=== PATIENT | male | born 1980 | race Two or more races ===

== ENCOUNTER 2019-08-31 22:04 | Inpatient (IN) | payer OTHER ==
[~2019-08-31] VITALS: Ht 172.7 cm; Wt 77.3 kg
[2019-08-31] MEDS ORDERED: LISI-662 PO (23:24)
[2019-08-31] MEDS ORDERED: ATEN-73 PO (23:24)
[2019-08-31 23:54] LABS: EOSINOPHILS % (AUTO) 8.3 % (1.0-6.0); HEMATOCRIT 45.2 % (41-53); HEMOGLOBIN 14.9 g/dL (13.5-17.5); LYMPHOCYTES # (AUTO) 2.8 K/uL (1.0-4.8); LYMPHOCYTES % (AUTO) 39.1 % (22.0-44.0); MEAN CORPUSCULAR HEMOGLOBIN 30.4 pg (26.0-34.0); MEAN CORPUSCULAR VOLUME 92 fL (80-100); MONOCYTES # (AUTO) 0.6 K/uL (0.1-1.0); MONOCYTES % (AUTO) 8.3 % (2.0-9.0); NEUTROPHILS # (AUTO) 3.1 K/uL (1.8-7.7); NEUTROPHILS % (AUTO) 43.3 % (40.0-70.0); PLATELET COUNT (AUTO) 235 K/uL (150-450); RED BLOOD CELL COUNT(AUTO) 4.92 MIL/uL (4.50-5.90); RED CELL DISTRIBUTION WIDTH 13.7 % (11.5-14.5)
[2019-09-01 00:02] LABS: ANION GAP 3 mmol/L (8-16); CALCIUM, TOTAL 9.3 mg/dL (8.8-10.5); CARBON DIOXIDE 32 mmol/L (22-29); CHLORIDE 105 mmol/L (98-107); CREATININE 0.82 mg/dL (0.60-1.30); GLOMERULAR FILTR. RATE CALC > 60 mL/min (>60); GLUCOSE,RANDOM 91 mg/dL (70-110); POTASSIUM 3.8 mmol/L (3.5-5.1); SODIUM SERUM 140 mmol/L (136-145); UREA NITROGEN, BLOOD 14 mg/dL (7-18)
[2019-09-01 00:08] LABS: ALANINE AMINOTRANSFERASE 25 U/L (12-78); ALBUMIN 3.6 g/dL (3.4-5.0); ALKALINE PHOSPHATASE 119 U/L (46-116); ASPARTATE AMINOTRANSFERASE 26 U/L (15-37); BILIRUBIN,TOTAL 0.6 mg/dL (0.1-1.0); TOTAL PROTEIN, SERUM 7.2 g/dL (6.4-8.2)
[2019-09-01] MEDS ORDERED: ACETAMINOPHEN 325 MG TABLET PO PRN ×2 (00:45→02:30)
[2019-09-01] MEDS ORDERED: ONDANSETRON HCL 4 MG/2 ML VIAL IVP PRN ×2 (00:45→02:30)
[2019-09-01] MEDS ORDERED: 0.9% SODIUM CHLORIDE 10 ML SYRINGE IVP PRN (00:45)
[2019-09-01 01:40] VITALS: BP 112/51
[2019-09-01 02:30] VITALS: BP 112/51
[2019-09-01] MEDS ORDERED: HydrOXYzine PAMOATE 50 MG CAPSULE PO PRN (02:30)
[2019-09-01] MEDS ORDERED: ZOLPIDEM TARTRATE 5 MG TABLET PO PRN (02:30)
[2019-09-01] MEDS ORDERED: CloNIDine HCL 0.1 MG TABLET PO PRN (02:30)
[2019-09-01] MEDS ORDERED: IBUPROFEN 600 MG TABLET PO PRN (02:30)
[2019-09-01] MEDS ORDERED: MORPHINE SULFATE 2 MG/ML SYRINGE IVP PRN (02:30)
[2019-09-01] MEDS ORDERED: HYDROCODONE/ACETAMINOPHEN 5-325 MG TABLET PO PRN (02:30)
[2019-09-01] MEDS ORDERED: MAGNESIUM HYDROXIDE SUSPENSION 30 ML UDCUP PO PRN (02:30)
[2019-09-01] MEDS ORDERED: ALBUTEROL SULFATE 2.5 MG/0.5 ML NEB SOLUTION NEB PRN (02:30)
[2019-09-01] MEDS ORDERED: BISACODYL 10 MG RECTAL RECTAL SUPPOSITORY PR PRN (02:30)
[2019-09-01] MEDS ORDERED: IPRATROPIUM BROMIDE 0.5 MG/2.5 ML NEB SOLUTION NEB PRN (02:30)
[2019-09-01] MEDS ORDERED: MAG HYDROX/AL HYDROX/SIMETH ES 30 ML SUSPENSION UDCUP PO PRN (02:30)
[2019-09-01] MEDS ORDERED: PNEUMOCOCCAL VACCINE POLYVALENT 0.5 ML VIAL [PPSV23] IM ONE (03:15)
[2019-09-01 04:40] VITALS: BP 94/56
[2019-09-01] MEDS: CloNIDine HCL 0.1 MG TABLET PO SCH ×4 (05:57→21:45)
[2019-09-01] MEDS ORDERED: HEPARIN SODIUM,PORCINE 5,000 UNITS/ML VIAL SQ SCH (08:00)
[2019-09-01 08:44] VITALS: BP 126/76
[2019-09-01] MEDS ORDERED: DOCUSATE SODIUM 100 MG CAPSULE PO SCH (09:00)
[2019-09-01 20:16] VITALS: BP 108/57
[2019-09-02 00:22] VITALS: BP 99/55
[2019-09-02 03:52] VITALS: BP 101/64
[2019-09-02 04:47] VITALS: BP 104/69
[2019-09-02] MEDS: CloNIDine HCL 0.1 MG TABLET PO SCH ×4 (06:00→22:00)
[2019-09-02 08:08] VITALS: BP 116/70
[2019-09-02] MEDS ORDERED: CLON0.1T83 PO (16:24)
[2019-09-02 19:53] VITALS: BP 116/57
[2019-09-03 05:08] VITALS: BP 112/66
[2019-09-03] MEDS: CloNIDine HCL 0.1 MG TABLET PO SCH (06:00)
== END 2019-09-03 12:06 | DRG 897 ==
LOC: EMS 22:04 → 6S 09-01 01:00
PROVIDERS: ADMIT Hospitalist; ATTEND Hospitalist
DX: F11.23 Opioid dependence with withdrawal (principal); I10 Essential (primary) hypertension
CPT/HCPCS: G0480; J1644

== ENCOUNTER 2019-09-04 03:35 | Inpatient (IN) | payer OTHER ==
[~2019-09-04] VITALS: Ht 172.7 cm; Wt 68.2 kg
[~2019-09-04 03:35] MED LIST: CLON0.1T83 PO
[2019-09-04 04:38] LABS: BASOPHILS % (AUTO) 1.3 % (0.0-2.0); EOSINOPHILS % (AUTO) 8.5 % (1.0-6.0); HEMATOCRIT 44.6 % (41-53); HEMOGLOBIN 14.5 g/dL (13.5-17.5); LYMPHOCYTES # (AUTO) 3.3 K/uL (1.0-4.8); LYMPHOCYTES % (AUTO) 41.8 % (22.0-44.0); MEAN CORPUSCULAR HGB CONC 32.4 G/dL (31.0-37.0); MEAN CORPUSCULAR VOLUME 92 fL (80-100); MONOCYTES # (AUTO) 0.6 K/uL (0.1-1.0); MONOCYTES % (AUTO) 7.8 % (2.0-9.0); NEUTROPHILS # (AUTO) 3.2 K/uL (1.8-7.7); NEUTROPHILS % (AUTO) 40.6 % (40.0-70.0); PLATELET COUNT (AUTO) 243 K/uL (150-450); RED BLOOD CELL COUNT(AUTO) 4.83 MIL/uL (4.50-5.90); RED CELL DISTRIBUTION WIDTH 13.6 % (11.5-14.5)
[2019-09-04 04:44] LABS: ANION GAP 4 mmol/L (8-16); CALCIUM, TOTAL 8.7 mg/dL (8.8-10.5); CARBON DIOXIDE 33 mmol/L (22-29); CHLORIDE 105 mmol/L (98-107); CREATININE 0.96 mg/dL (0.60-1.30); GLOMERULAR FILTR. RATE CALC > 60 mL/min (>60); GLUCOSE,RANDOM 80 mg/dL (70-110); POTASSIUM 4.1 mmol/L (3.5-5.1); SODIUM SERUM 142 mmol/L (136-145); UREA NITROGEN, BLOOD 16 mg/dL (7-18)
[2019-09-04 04:49] LABS: ALANINE AMINOTRANSFERASE 10 U/L (12-78); ALBUMIN 3.6 g/dL (3.4-5.0); ALKALINE PHOSPHATASE 134 U/L (46-116); ASPARTATE AMINOTRANSFERASE 13 U/L (15-37); BILIRUBIN,TOTAL 0.2 mg/dL (0.1-1.0)
[2019-09-04 08:57] VITALS: BP 112/64
[2019-09-04] MEDS ORDERED: ACETAMINOPHEN 325 MG TABLET PO PRN (12:45)
[2019-09-04] MEDS ORDERED: MAGNESIUM HYDROXIDE SUSPENSION 30 ML UDCUP PO PRN (12:45)
[2019-09-04 15:40] VITALS: BP 114/58
[2019-09-04] MEDS: HEPARIN SODIUM,PORCINE 5,000 UNITS/ML VIAL SQ SCH ×2 (15:52→23:43)
[2019-09-04 22:20] VITALS: BP 91/50
[2019-09-05 04:35] VITALS: BP 99/58
[2019-09-05] MEDS: HEPARIN SODIUM,PORCINE 5,000 UNITS/ML VIAL SQ SCH (08:00)
[2019-09-05 08:35] VITALS: BP 108/60
[2019-09-05] MEDS: FAMOTIDINE 20 MG TABLET PO SCH (08:48)
[2019-09-05] MEDS: SERTRALINE HCL 50 MG TABLET PO SCH (09:42)
[2019-09-05 16:03] VITALS: BP 118/63
[2019-09-05 19:50] VITALS: BP 120/73
[2019-09-06 04:59] VITALS: BP 111/67
[2019-09-06] MEDS: FAMOTIDINE 20 MG TABLET PO SCH (08:18)
[2019-09-06] MEDS: SERTRALINE HCL 50 MG TABLET PO SCH ×2 (08:18→08:20)
[2019-09-06 08:19] VITALS: BP 135/80
[2019-09-06] MEDS ORDERED: SERT50TA12 PO (14:07)
== END 2019-09-06 15:20 | DRG 885 ==
LOC: EMS 03:35 → 6S 06:21
PROVIDERS: ADMIT Hospitalist; ATTEND Hospitalist
DX: F33.2 Major depressive disorder, recurrent severe without psychotic features (principal); R45.851 Suicidal ideations; F19.10 Other psychoactive substance abuse, uncomplicated; I10 Essential (primary) hypertension; Z90.49 Acquired absence of other specified parts of digestive tract; F11.90 Opioid use, unspecified, uncomplicated; F17.210 Nicotine dependence, cigarettes, uncomplicated; F41.9 Anxiety disorder, unspecified; F10.10 Alcohol abuse, uncomplicated; Y90.9 Presence of alcohol in blood, level not specified; Z79.899 Other long term (current) drug therapy
CPT/HCPCS: G0480; J1644; 36415-L1; 36415-TC; 71045-TC

== ENCOUNTER 2019-09-11 11:10 | Inpatient (IN) | payer OTHER ==
[~2019-09-11] VITALS: Ht 172.7 cm; Wt 68.2 kg
[~2019-09-11 11:10] MED LIST changes: -CLON0.1T83 PO; +SERT50TA12 PO
[2019-09-11] MEDS ORDERED: LISI-662 PO (11:38)
[2019-09-11] MEDS ORDERED: SERT50TA12 PO (11:38)
[2019-09-11] MEDS ORDERED: MAGNESIUM HYDROXIDE SUSPENSION 30 ML UDCUP PO PRN (11:45)
[2019-09-11 11:48] LABS: BASOPHILS % (AUTO) 1.1 % (0.0-2.0); EOSINOPHILS % (AUTO) 7.4 % (1.0-6.0); HEMATOCRIT 41.6 % (41-53); LYMPHOCYTES % (AUTO) 35.6 % (22.0-44.0); MEAN CORPUSCULAR HEMOGLOBIN 30.9 pg (26.0-34.0); MEAN CORPUSCULAR HGB CONC 33.7 G/dL (31.0-37.0); MEAN CORPUSCULAR VOLUME 92 fL (80-100); MONOCYTES # (AUTO) 0.4 K/uL (0.1-1.0); MONOCYTES % (AUTO) 7.4 % (2.0-9.0); NEUTROPHILS # (AUTO) 2.7 K/uL (1.8-7.7); NEUTROPHILS % (AUTO) 48.5 % (40.0-70.0); PLATELET COUNT (AUTO) 251 K/uL (150-450); RED BLOOD CELL COUNT(AUTO) 4.54 MIL/uL (4.50-5.90); RED CELL DISTRIBUTION WIDTH 13.8 % (11.5-14.5)
[2019-09-11 12:12] LABS: ALANINE AMINOTRANSFERASE 30 U/L (12-78); ALBUMIN 3.4 g/dL (3.4-5.0); ALKALINE PHOSPHATASE 114 U/L (46-116); ASPARTATE AMINOTRANSFERASE 17 U/L (15-37); BILIRUBIN,TOTAL 0.3 mg/dL (0.1-1.0); CALCIUM, TOTAL 8.7 mg/dL (8.8-10.5); CARBON DIOXIDE 34 mmol/L (22-29); CREATININE 0.93 mg/dL (0.60-1.30); GLOMERULAR FILTR. RATE CALC > 60 mL/min (>60); GLUCOSE,RANDOM 110 mg/dL (70-110); UREA NITROGEN, BLOOD 11 mg/dL (7-18)
[2019-09-11 12:20] VITALS: BP 114/61
[2019-09-11 12:30] LABS: ANION GAP 4 mmol/L (8-16); CHLORIDE 103 mmol/L (98-107); POTASSIUM 4.5 mmol/L (3.5-5.1); SODIUM SERUM 141 mmol/L (136-145)
[2019-09-11] MEDS: ACETAMINOPHEN 325 MG TABLET PO PRN (13:18)
[2019-09-11 15:31] VITALS: BP 123/69
[2019-09-11 15:51] LABS: AMPHET/METH SCREEN,URINE NEGATIVE (NEGATIVE); BARBITURATE SCREEN, URINE NEGATIVE (NEGATIVE); BENZODIAZEPINES SCREEN,URINE NEGATIVE (NEGATIVE); CANNABINOID SCREEN,URINE NEGATIVE (NEGATIVE); COCAINE SCREEN,URINE NEGATIVE (NEGATIVE); METHADONE SCREEN, URINE NEGATIVE (NEGATIVE); OPIATE SCREEN,URINE NEGATIVE (NEGATIVE)
[2019-09-11 16:17] LABS: PHENCYCLIDINE SCREEN,URINE NEGATIVE (NEGATIVE)
[2019-09-11 19:45] VITALS: BP 101/70
[2019-09-12 03:58] VITALS: BP 102/86
[2019-09-12 08:37] VITALS: BP 99/44
[2019-09-12 15:30] VITALS: BP 120/65
[2019-09-12 20:50] VITALS: BP 116/66
[2019-09-13 05:36] VITALS: BP 108/66
[2019-09-13] MEDS: ACETAMINOPHEN 325 MG TABLET PO PRN ×2 (05:47→22:21)
[2019-09-13 08:59] VITALS: BP_SYST 103; BP_SYST 203; BP_DIAS 56
[2019-09-13 15:40] VITALS: BP 130/60
[2019-09-13 20:24] VITALS: BP 107/68
[2019-09-14 07:40] VITALS: BP 121/75
[2019-09-14] MEDS: CITALOPRAM HYDROBROMIDE 20 MG TABLET PO SCH (18:04)
[2019-09-14] MEDS: ACETAMINOPHEN 325 MG TABLET PO PRN (20:00)
[2019-09-14 20:54] VITALS: BP 113/62
[2019-09-15 05:13] VITALS: BP 102/63
[2019-09-15 08:03] VITALS: BP 107/74
[2019-09-15] MEDS: CITALOPRAM HYDROBROMIDE 20 MG TABLET PO SCH (08:37)
[2019-09-15 15:23] VITALS: BP 105/61
[2019-09-15 19:46] VITALS: BP 113/67
[2019-09-15] MEDS: ACETAMINOPHEN 325 MG TABLET PO PRN (19:47)
[2019-09-16] MEDS ORDERED: CITA-144 PO (07:29)
[2019-09-16 08:10] VITALS: BP 111/69
[2019-09-16] MEDS: CITALOPRAM HYDROBROMIDE 20 MG TABLET PO SCH (08:35)
[2019-09-16 15:56] VITALS: BP 115/72
[2019-09-16 19:46] VITALS: BP 116/68
[2019-09-17 05:02] VITALS: BP 112/70
[2019-09-17] MEDS: CITALOPRAM HYDROBROMIDE 20 MG TABLET PO SCH (07:56)
[2019-09-17 08:11] VITALS: BP 121/77
== END 2019-09-17 10:30 | DRG 881 ==
LOC: EMS 11:11 → 6S 11:43
PROVIDERS: ADMIT Internal Medicine; ATTEND Internal Medicine
DX: F32.9 Major depressive disorder, single episode, unspecified (principal); R45.851 Suicidal ideations; I10 Essential (primary) hypertension; K59.00 Constipation, unspecified; F11.90 Opioid use, unspecified, uncomplicated; F43.20 Adjustment disorder, unspecified; F60.2 Antisocial personality disorder; Z90.49 Acquired absence of other specified parts of digestive tract
CPT/HCPCS: G0480

== ENCOUNTER 2019-12-17 12:59 | Inpatient (IN) | payer OTHER ==
[~2019-12-17] VITALS: Ht 167.6 cm; Wt 63.4 kg
[~2019-12-17 12:59] MED LIST changes: +BUSP5TAB20 PO; +PROZ10 PO; -SERT50TA12 PO
[2019-12-17] MEDS ORDERED: LISI-662 PO (13:42)
[2019-12-17 14:16] LABS: AMPHET/METH SCREEN,URINE NEGATIVE (NEGATIVE); BARBITURATE SCREEN, URINE NEGATIVE (NEGATIVE); BENZODIAZEPINES SCREEN,URINE NEGATIVE (NEGATIVE); CANNABINOID SCREEN,URINE NEGATIVE (NEGATIVE); COCAINE SCREEN,URINE NEGATIVE (NEGATIVE); METHADONE SCREEN, URINE NEGATIVE (NEGATIVE); OPIATE SCREEN,URINE NEGATIVE (NEGATIVE)
[2019-12-17 14:20] LABS: PHENCYCLIDINE SCREEN,URINE NEGATIVE (NEGATIVE)
[2019-12-17 14:46] LABS: EOSINOPHILS % (AUTO) 2.1 % (1.0-6.0); HEMATOCRIT 42.9 % (41-53); HEMOGLOBIN 14.8 g/dL (13.5-17.5); LYMPHOCYTES % (AUTO) 34.9 % (22.0-44.0); MEAN CORPUSCULAR HEMOGLOBIN 30.6 pg (26.0-34.0); MEAN CORPUSCULAR HGB CONC 34.6 G/dL (31.0-37.0); MEAN CORPUSCULAR VOLUME 89 fL (80-100); MONOCYTES # (AUTO) 0.4 K/uL (0.1-1.0); MONOCYTES % (AUTO) 6.9 % (2.0-9.0); NEUTROPHILS # (AUTO) 3.2 K/uL (1.8-7.7); NEUTROPHILS % (AUTO) 55.1 % (40.0-70.0); PLATELET COUNT (AUTO) 242 K/uL (150-450); RED BLOOD CELL COUNT(AUTO) 4.85 MIL/uL (4.50-5.90); RED CELL DISTRIBUTION WIDTH 14.2 % (11.5-14.5)
[2019-12-17 14:54] LABS: ANION GAP 12 mmol/L (8-16); CALCIUM, TOTAL 9.2 mg/dL (8.8-10.5); CARBON DIOXIDE 25 mmol/L (22-29); CHLORIDE 101 mmol/L (98-107); CREATININE 0.91 mg/dL (0.60-1.30); GLOMERULAR FILTR. RATE CALC > 60 mL/min (>60); GLUCOSE,RANDOM 70 mg/dL (70-110); POTASSIUM 4.3 mmol/L (3.5-5.1); SODIUM SERUM 138 mmol/L (136-145); UREA NITROGEN, BLOOD 20 mg/dL (7-18)
[2019-12-17 15:01] LABS: ALANINE AMINOTRANSFERASE 37 U/L (12-78); ALBUMIN 3.7 g/dL (3.4-5.0); ALKALINE PHOSPHATASE 93 U/L (46-116); ASPARTATE AMINOTRANSFERASE 20 U/L (15-37); BILIRUBIN,TOTAL 0.7 mg/dL (0.1-1.0); TOTAL PROTEIN, SERUM 6.8 g/dL (6.4-8.2)
[2019-12-17] MEDS ORDERED: ONDANSETRON HCL 4 MG TABLET PO PRN (15:45)
[2019-12-17] MEDS ORDERED: CloNIDine HCL 0.1 MG TABLET PO PRN (15:45)
[2019-12-17] MEDS ORDERED: ALBUTEROL SULFATE HFA 90 MCG/PUFF 8 GM INHALER IH PRN (15:45)
[2019-12-17] MEDS ORDERED: PETROLATUM,WHITE 28 GM JELLY TP PRN (15:45)
[2019-12-17] MEDS ORDERED: MAGNESIUM HYDROXIDE SUSPENSION 30 ML UDCUP PO PRN (15:45)
[2019-12-17] MEDS ORDERED: DOCUSATE SODIUM 100 MG CAPSULE PO PRN (15:45)
[2019-12-17] MEDS ORDERED: GuaiFENesin/D-METHORPHAN [SUGAR-FREE] 200-20MG/10 ML SYRUP UDCUP PO PRN (15:45)
[2019-12-17] MEDS ORDERED: NICOTINE 14 MG/24 HOUR PATCH TD PRN (15:45)
[2019-12-17] MEDS ORDERED: MAG HYDROX/AL HYDROX/SIMETH ES 30 ML SUSPENSION UDCUP PO PRN (15:45)
[2019-12-17] MEDS ORDERED: LOPERAMIDE HCL 2 MG CAPSULE PO PRN (15:45)
[2019-12-17 16:03] LABS: COVID AG,FIA SOURCE NASOPHARYNGEAL
[2019-12-17 17:25] VITALS: BP 126/84
[2019-12-17 20:20] VITALS: BP 113/68
[2019-12-17] MEDS: ACETAMINOPHEN 325 MG TABLET PO PRN (20:41)
[2019-12-18 04:02] VITALS: BP 107/61
[2019-12-18 08:02] VITALS: BP 110/70
[2019-12-18] MEDS: IBUPROFEN 400 MG TABLET PO PRN ×2 (08:06→19:45)
[2019-12-18] MEDS: ACETAMINOPHEN 325 MG TABLET PO PRN ×2 (08:13→15:18)
[2019-12-18 15:57] VITALS: BP 122/72
[2019-12-18 19:40] VITALS: BP 118/72
[2019-12-19 05:00] VITALS: BP 106/62
[2019-12-19 08:13] VITALS: BP 110/73
[2019-12-19] MEDS: ACETAMINOPHEN 325 MG TABLET PO PRN ×2 (08:18→20:11)
[2019-12-19] MEDS: RisperiDONE 1 MG TABLET PO SCH (13:47)
[2019-12-19] MEDS: SERTRALINE HCL 50 MG TABLET PO SCH (13:47)
[2019-12-19 16:54] VITALS: BP 129/71
[2019-12-19 19:00] VITALS: BP 128/80
[2019-12-20 08:43] VITALS: BP 108/73
[2019-12-20] MEDS: RisperiDONE 1 MG TABLET PO SCH (09:12)
[2019-12-20] MEDS: SERTRALINE HCL 50 MG TABLET PO SCH (09:12)
[2019-12-20] MEDS: ACETAMINOPHEN 325 MG TABLET PO PRN (14:37)
[2019-12-20 16:03] VITALS: BP 119/70
[2019-12-20 19:40] VITALS: BP 104/58
[2019-12-21] MEDS: ACETAMINOPHEN 325 MG TABLET PO PRN (06:44)
[2019-12-21] MEDS: IBUPROFEN 400 MG TABLET PO PRN ×2 (06:45→20:18)
[2019-12-21 07:48] VITALS: BP 110/68
[2019-12-21] MEDS: RisperiDONE 1 MG TABLET PO SCH (08:15)
[2019-12-21] MEDS: SERTRALINE HCL 50 MG TABLET PO SCH ×3 (08:15→20:16)
[2019-12-21 19:40] VITALS: BP 113/72
[2019-12-22 05:20] VITALS: BP 107/57
[2019-12-22 07:55] VITALS: BP 129/76
[2019-12-22] MEDS: SERTRALINE HCL 50 MG TABLET PO SCH ×2 (07:55→20:22)
[2019-12-22] MEDS: RisperiDONE 1 MG TABLET PO SCH ×2 (07:55→20:22)
[2019-12-22] MEDS: IBUPROFEN 400 MG TABLET PO PRN (11:35)
[2019-12-22 15:33] VITALS: BP 127/88
[2019-12-22 20:22] VITALS: BP 116/69
[2019-12-22] MEDS: BusPIRone HCL 10 MG TABLET PO SCH (20:22)
[2019-12-23] MEDS: ACETAMINOPHEN 325 MG TABLET PO PRN ×2 (01:40→20:17)
[2019-12-23 08:00] VITALS: BP 130/75
[2019-12-23] MEDS: SERTRALINE HCL 50 MG TABLET PO SCH ×2 (09:07→20:13)
[2019-12-23] MEDS: RisperiDONE 1 MG TABLET PO SCH ×2 (09:07→09:11)
[2019-12-23] MEDS: BusPIRone HCL 10 MG TABLET PO SCH ×2 (09:07→20:14)
[2019-12-23] MEDS: RisperiDONE 0.5 MG TABLET PO SCH ×2 (09:37→20:14)
[2019-12-23 19:00] VITALS: BP 133/85
[2019-12-23] MEDS ORDERED: RisperiDONE 0.5 MG TABLET PO SCH (21:00)
[2019-12-24 08:00] VITALS: BP 133/79
[2019-12-24] MEDS: RisperiDONE 0.5 MG TABLET PO SCH ×2 (08:50→19:49)
[2019-12-24] MEDS: BusPIRone HCL 10 MG TABLET PO SCH ×2 (08:50→19:49)
[2019-12-24] MEDS: SERTRALINE HCL 50 MG TABLET PO SCH ×2 (08:50→19:49)
[2019-12-24] MEDS: ACETAMINOPHEN 325 MG TABLET PO PRN (16:31)
[2019-12-24 19:00] VITALS: BP 113/69
[2019-12-24] MEDS: IBUPROFEN 400 MG TABLET PO PRN (19:49)
[2019-12-25 07:19] VITALS: BP 117/71
[2019-12-25] MEDS: ACETAMINOPHEN 325 MG TABLET PO PRN (07:46)
[2019-12-25] MEDS: BusPIRone HCL 10 MG TABLET PO SCH ×2 (07:46→19:39)
[2019-12-25] MEDS: RisperiDONE 0.5 MG TABLET PO SCH (07:46)
[2019-12-25] MEDS: SERTRALINE HCL 50 MG TABLET PO SCH ×2 (07:46→19:39)
[2019-12-25] MEDS: OLANZapine 5 MG TABLET PO SCH ×2 (10:09→19:39)
[2019-12-25 19:21] VITALS: BP 134/80
[2019-12-26 07:33] VITALS: BP 117/66
[2019-12-26] MEDS: SERTRALINE HCL 50 MG TABLET PO SCH ×2 (07:45→20:04)
[2019-12-26] MEDS: OLANZapine 5 MG TABLET PO SCH (07:45)
[2019-12-26] MEDS: BusPIRone HCL 10 MG TABLET PO SCH ×2 (07:45→20:04)
[2019-12-26] MEDS: ACETAMINOPHEN 325 MG TABLET PO PRN (14:44)
[2019-12-26 19:30] VITALS: BP 132/77
[2019-12-26] MEDS: OLANZapine 7.5 MG TABLET PO SCH (20:04)
[2019-12-27 05:25] VITALS: BP 108/65
[2019-12-27 07:50] VITALS: BP 111/67
[2019-12-27] MEDS: OLANZapine 7.5 MG TABLET PO SCH ×2 (08:31→20:13)
[2019-12-27] MEDS: SERTRALINE HCL 50 MG TABLET PO SCH ×2 (08:31→20:13)
[2019-12-27] MEDS: BusPIRone HCL 10 MG TABLET PO SCH ×2 (08:31→20:13)
[2019-12-27] MEDS: ACETAMINOPHEN 325 MG TABLET PO PRN ×2 (08:37→16:31)
[2019-12-27 19:23] VITALS: BP 128/62
[2019-12-28] MEDS: SERTRALINE HCL 50 MG TABLET PO SCH ×2 (07:54→20:28)
[2019-12-28] MEDS: BusPIRone HCL 10 MG TABLET PO SCH ×2 (07:54→20:28)
[2019-12-28] MEDS: OLANZapine 7.5 MG TABLET PO SCH ×2 (07:54→20:28)
[2019-12-28 08:00] VITALS: BP 142/88
[2019-12-28] MEDS ORDERED: INFLUENZA VIRUS VACCINE QVS 2020-21 (6MO+)/PF 60 MCG/0.5 ML SYRINGE IM ONE (15:15)
[2019-12-28] MEDS: ACETAMINOPHEN 325 MG TABLET PO PRN (16:28)
[2019-12-28 20:45] VITALS: BP 116/74
[2019-12-29 04:20] VITALS: BP 115/72
[2019-12-29] MEDS: BusPIRone HCL 10 MG TABLET PO SCH ×2 (07:48→20:28)
[2019-12-29] MEDS: OLANZapine 7.5 MG TABLET PO SCH ×2 (07:49→20:28)
[2019-12-29] MEDS: SERTRALINE HCL 50 MG TABLET PO SCH ×2 (07:49→20:29)
[2019-12-29] MEDS: ACETAMINOPHEN 325 MG TABLET PO PRN ×2 (13:25→13:26)
[2019-12-29 16:07] VITALS: BP 118/72
[2019-12-29 20:25] VITALS: BP 115/64
[2019-12-30 06:30] VITALS: BP 105/55
[2019-12-30 08:02] VITALS: BP 102/56
[2019-12-30] MEDS: SERTRALINE HCL 50 MG TABLET PO SCH ×2 (08:22→20:13)
[2019-12-30] MEDS: BusPIRone HCL 10 MG TABLET PO SCH ×2 (08:23→20:13)
[2019-12-30] MEDS: OLANZapine 7.5 MG TABLET PO SCH ×2 (08:23→20:13)
[2019-12-30] MEDS: IBUPROFEN 400 MG TABLET PO PRN ×2 (12:59→18:01)
[2019-12-30 15:24] VITALS: BP 128/65
[2019-12-30 19:44] VITALS: BP 122/60
[2019-12-31 08:12] VITALS: BP 109/62
[2019-12-31] MEDS: SERTRALINE HCL 50 MG TABLET PO SCH ×2 (08:14→20:07)
[2019-12-31] MEDS: OLANZapine 7.5 MG TABLET PO SCH ×2 (08:14→20:07)
[2019-12-31] MEDS: BusPIRone HCL 10 MG TABLET PO SCH ×2 (08:14→20:07)
[2019-12-31] MEDS: IBUPROFEN 400 MG TABLET PO PRN (16:32)
[2019-12-31 20:02] VITALS: BP 120/66
[2020-01-01 05:30] VITALS: BP 107/59
[2020-01-01 08:11] VITALS: BP 110/36
[2020-01-01] MEDS: SERTRALINE HCL 50 MG TABLET PO SCH ×2 (08:16→20:34)
[2020-01-01] MEDS: BusPIRone HCL 10 MG TABLET PO SCH ×2 (08:17→20:33)
[2020-01-01] MEDS: OLANZapine 7.5 MG TABLET PO SCH ×2 (08:17→20:34)
[2020-01-01 14:09] VITALS: BP 113/67
[2020-01-01] MEDS: ACETAMINOPHEN 325 MG TABLET PO PRN (18:03)
[2020-01-01 19:37] VITALS: BP 111/58
[2020-01-02 04:42] VITALS: BP 107/59
[2020-01-02] MEDS: OLANZapine 7.5 MG TABLET PO SCH (07:59)
[2020-01-02] MEDS: SERTRALINE HCL 50 MG TABLET PO SCH (07:59)
[2020-01-02] MEDS: BusPIRone HCL 10 MG TABLET PO SCH (07:59)
[2020-01-02 08:02] VITALS: BP 106/57
[2020-01-02] MEDS ORDERED: BUSP10TA23 PO (10:20)
[2020-01-02] MEDS ORDERED: OLAN7.5T2 PO (10:21)
[2020-01-02] MEDS ORDERED: SERT50TA12 PO (10:21)
== END 2020-01-02 13:15 | DRG 885 ==
LOC: EMS 13:04 → 6S 15:43
PROVIDERS: ADMIT Internal Medicine; ATTEND Internal Medicine
DX: F33.2 Major depressive disorder, recurrent severe without psychotic features (principal); R45.851 Suicidal ideations; I10 Essential (primary) hypertension; F17.210 Nicotine dependence, cigarettes, uncomplicated; F10.10 Alcohol abuse, uncomplicated; F11.90 Opioid use, unspecified, uncomplicated; F41.1 Generalized anxiety disorder; Y90.9 Presence of alcohol in blood, level not specified; F19.10 Other psychoactive substance abuse, uncomplicated; F43.20 Adjustment disorder, unspecified; F15.90 Other stimulant use, unspecified, uncomplicated; F25.1 Schizoaffective disorder, depressive type; Z20.828 Contact with and (suspected) exposure to other viral communicable diseases
CPT/HCPCS: 71101; 87426; 93005; 97161; G0480

== ENCOUNTER 2020-01-05 17:52 | Inpatient (IN) | payer OTHER ==
[~2020-01-05] VITALS: Ht 172.7 cm; Wt 71.8 kg
[~2020-01-05 17:52] MED LIST changes: +BUSP10TA23 PO; -BUSP5TAB20 PO; +LISI-662 PO; +OLAN7.5T2 PO; -PROZ10 PO; +SERT50TA12 PO
[2020-01-05] MEDS ORDERED: ACETAMINOPHEN 500 MG TABLET PO ONE (18:30)
[2020-01-05] MEDS ORDERED: ACETAMINOPHEN 325 MG TABLET PO PRN (18:30)
[2020-01-05 19:13] LABS: COVID AG,FIA SOURCE NASOPHARYNGEAL
[2020-01-05] MEDS ORDERED: ZOLPIDEM TARTRATE 5 MG TABLET PO PRN (19:30)
[2020-01-05] MEDS ORDERED: IPRATROPIUM BROMIDE 0.5 MG/2.5 ML NEB SOLUTION NEB PRN (19:30)
[2020-01-05] MEDS ORDERED: BISACODYL 10 MG RECTAL RECTAL SUPPOSITORY PR PRN (19:30)
[2020-01-05] MEDS ORDERED: ALBUTEROL SULFATE 2.5 MG/0.5 ML NEB SOLUTION NEB PRN (19:30)
[2020-01-05] MEDS ORDERED: MAGNESIUM HYDROXIDE SUSPENSION 30 ML UDCUP PO PRN (19:30)
[2020-01-05] MEDS ORDERED: ONDANSETRON HCL 4 MG/2 ML VIAL IVP PRN (19:30)
[2020-01-05 19:42] LABS: BASOPHILS % (AUTO) 0.7 % (0.0-2.0); EOSINOPHILS % (AUTO) 4.7 % (1.0-6.0); HEMATOCRIT 43.1 % (41-53); HEMOGLOBIN 14.3 g/dL (13.5-17.5); LYMPHOCYTES # (AUTO) 2.9 K/uL (1.0-4.8); LYMPHOCYTES % (AUTO) 38.6 % (22.0-44.0); MEAN CORPUSCULAR HEMOGLOBIN 30.4 pg (26.0-34.0); MEAN CORPUSCULAR HGB CONC 33.3 G/dL (31.0-37.0); MEAN CORPUSCULAR VOLUME 91 fL (80-100); MONOCYTES # (AUTO) 0.7 K/uL (0.1-1.0); MONOCYTES % (AUTO) 8.8 % (2.0-9.0); NEUTROPHILS # (AUTO) 3.5 K/uL (1.8-7.7); NEUTROPHILS % (AUTO) 47.2 % (40.0-70.0); PLATELET COUNT (AUTO) 266 K/uL (150-450); RED BLOOD CELL COUNT(AUTO) 4.71 MIL/uL (4.50-5.90); RED CELL DISTRIBUTION WIDTH 15.1 % (11.5-14.5)
[2020-01-05 20:00] LABS: ANION GAP 9 mmol/L (8-16); CALCIUM, TOTAL 9.2 mg/dL (8.8-10.5); CARBON DIOXIDE 27 mmol/L (22-29); CHLORIDE 103 mmol/L (98-107); CREATININE 0.98 mg/dL (0.60-1.30); GLOMERULAR FILTR. RATE CALC > 60 mL/min (>60); GLUCOSE,RANDOM 104 mg/dL (70-110); POTASSIUM 4.2 mmol/L (3.5-5.1); SODIUM SERUM 139 mmol/L (136-145); UREA NITROGEN, BLOOD 17 mg/dL (7-18)
[2020-01-05 20:06] LABS: ALBUMIN 3.8 g/dL (3.4-5.0); ASPARTATE AMINOTRANSFERASE 38 U/L (15-37)
[2020-01-05 20:20] LABS: ALANINE AMINOTRANSFERASE 92 U/L (12-78); ALKALINE PHOSPHATASE 135 U/L (46-116); BILIRUBIN,TOTAL 0.3 mg/dL (0.1-1.0); TOTAL PROTEIN, SERUM 7.2 g/dL (6.4-8.2)
[2020-01-05] MEDS ORDERED: SERTRALINE HCL 50 MG TABLET PO ONE (21:00)
[2020-01-05] MEDS ORDERED: OLANZapine 5 MG TABLET PO ONE (21:00)
[2020-01-05] MEDS ORDERED: BusPIRone HCL 10 MG TABLET PO ONE (21:00)
[2020-01-05 21:25] VITALS: BP 138/75
[2020-01-05] MEDS: DOCUSATE SODIUM 100 MG CAPSULE PO SCH (22:00)
[2020-01-05] MEDS ORDERED: INFLUENZA VIRUS VACCINE QVS 2020-21 (6MO+)/PF 60 MCG/0.5 ML SYRINGE IM ONE (23:45)
[2020-01-06 05:07] VITALS: BP 102/66
[2020-01-06] MEDS: HEPARIN SODIUM,PORCINE 5,000 UNITS/ML VIAL SQ SCH ×4 (08:00→23:45)
[2020-01-06 08:12] VITALS: BP 95/59
[2020-01-06] MEDS: DOCUSATE SODIUM 100 MG CAPSULE PO SCH ×2 (08:13→20:30)
[2020-01-06 08:31] VITALS: BP 100/52
[2020-01-06] MEDS ORDERED: LISINOPRIL 10 MG TABLET PO ONE (09:00)
[2020-01-06] MEDS: ACETAMINOPHEN 325 MG TABLET PO PRN (13:14)
[2020-01-06 20:20] VITALS: BP 110/66
[2020-01-07 04:21] VITALS: BP 95/55
[2020-01-07 07:34] VITALS: BP 118/69
[2020-01-07] MEDS: HEPARIN SODIUM,PORCINE 5,000 UNITS/ML VIAL SQ SCH ×3 (08:00→23:22)
[2020-01-07] MEDS: DOCUSATE SODIUM 100 MG CAPSULE PO SCH ×2 (08:41→21:00)
[2020-01-07] MEDS ORDERED: ARIPiprazole 15 MG TABLET PO SCH (09:00)
[2020-01-07] MEDS: BusPIRone HCL 10 MG TABLET PO SCH ×2 (13:28→19:39)
[2020-01-07] MEDS: OLANZapine 10 MG TABLET PO SCH ×2 (13:28→19:39)
[2020-01-07] MEDS: SERTRALINE HCL 50 MG TABLET PO SCH ×2 (13:28→19:39)
[2020-01-07] MEDS: ACETAMINOPHEN 325 MG TABLET PO PRN (13:28)
[2020-01-07 19:39] VITALS: BP 118/74
[2020-01-08 07:24] VITALS: BP 104/64
[2020-01-08] MEDS: HEPARIN SODIUM,PORCINE 5,000 UNITS/ML VIAL SQ SCH ×3 (08:00→22:46)
[2020-01-08] MEDS: DOCUSATE SODIUM 100 MG CAPSULE PO SCH ×2 (09:20→19:46)
[2020-01-08] MEDS: OLANZapine 10 MG TABLET PO SCH ×2 (09:20→19:40)
[2020-01-08] MEDS: SERTRALINE HCL 50 MG TABLET PO SCH ×2 (09:20→19:40)
[2020-01-08] MEDS: BusPIRone HCL 10 MG TABLET PO SCH ×2 (09:20→19:40)
[2020-01-08] MEDS: ACETAMINOPHEN 325 MG TABLET PO PRN ×2 (13:14→19:41)
[2020-01-08 15:58] VITALS: BP 102/58
[2020-01-08 19:55] VITALS: BP 122/73
[2020-01-09 05:10] VITALS: BP 121/70
[2020-01-09 08:00] VITALS: BP 133/80
[2020-01-09] MEDS: HEPARIN SODIUM,PORCINE 5,000 UNITS/ML VIAL SQ SCH ×3 (08:00→23:10)
[2020-01-09] MEDS: OLANZapine 10 MG TABLET PO SCH ×2 (08:42→20:42)
[2020-01-09] MEDS: DOCUSATE SODIUM 100 MG CAPSULE PO SCH ×3 (08:42→20:42)
[2020-01-09] MEDS: SERTRALINE HCL 50 MG TABLET PO SCH ×2 (08:43→20:42)
[2020-01-09] MEDS: BusPIRone HCL 10 MG TABLET PO SCH ×2 (08:43→20:42)
[2020-01-09] MEDS: ACETAMINOPHEN 325 MG TABLET PO PRN (15:53)
[2020-01-09 16:14] VITALS: BP 125/75
[2020-01-09 20:13] VITALS: BP 122/75
[2020-01-10 05:13] VITALS: BP 125/75
[2020-01-10] MEDS: DOCUSATE SODIUM 100 MG CAPSULE PO SCH ×3 (07:25→21:00)
[2020-01-10] MEDS: HEPARIN SODIUM,PORCINE 5,000 UNITS/ML VIAL SQ SCH ×2 (07:25→15:42)
[2020-01-10] MEDS: OLANZapine 10 MG TABLET PO SCH ×2 (07:59→20:13)
[2020-01-10] MEDS: BusPIRone HCL 10 MG TABLET PO SCH ×2 (07:59→20:13)
[2020-01-10] MEDS: SERTRALINE HCL 50 MG TABLET PO SCH ×2 (07:59→20:13)
[2020-01-10 08:08] VITALS: BP 107/76
[2020-01-10] MEDS: ACETAMINOPHEN 325 MG TABLET PO PRN (14:20)
[2020-01-10] MEDS: ZIPRASIDONE HCL 40 MG CAPSULE PO SCH (17:59)
[2020-01-10 21:05] VITALS: BP 116/74
[2020-01-11 05:36] VITALS: BP 130/74
[2020-01-11] MEDS: ACETAMINOPHEN 325 MG TABLET PO PRN ×3 (06:15→20:11)
[2020-01-11] MEDS: HEPARIN SODIUM,PORCINE 5,000 UNITS/ML VIAL SQ SCH ×3 (07:43→15:26)
[2020-01-11 08:07] VITALS: BP 114/75
[2020-01-11] MEDS: OLANZapine 10 MG TABLET PO SCH ×2 (08:10→20:10)
[2020-01-11] MEDS: ZIPRASIDONE HCL 40 MG CAPSULE PO SCH ×2 (08:10→18:39)
[2020-01-11] MEDS: SERTRALINE HCL 50 MG TABLET PO SCH ×2 (08:10→20:11)
[2020-01-11] MEDS: BusPIRone HCL 10 MG TABLET PO SCH ×2 (08:12→20:11)
[2020-01-11] MEDS: DOCUSATE SODIUM 100 MG CAPSULE PO SCH (20:10)
[2020-01-11 20:21] VITALS: BP 122/70
[2020-01-11 22:18] LABS: AMPHET/METH SCREEN,URINE NEGATIVE (NEGATIVE); BARBITURATE SCREEN, URINE NEGATIVE (NEGATIVE); BENZODIAZEPINES SCREEN,URINE NEGATIVE (NEGATIVE); CANNABINOID SCREEN,URINE NEGATIVE (NEGATIVE); COCAINE SCREEN,URINE NEGATIVE (NEGATIVE); METHADONE SCREEN, URINE NEGATIVE (NEGATIVE); OPIATE SCREEN,URINE NEGATIVE (NEGATIVE)
[2020-01-11 22:20] LABS: PHENCYCLIDINE SCREEN,URINE NEGATIVE (NEGATIVE)
[2020-01-12] MEDS: HEPARIN SODIUM,PORCINE 5,000 UNITS/ML VIAL SQ SCH ×4 (00:02→23:24)
[2020-01-12 05:03] VITALS: BP 116/66
[2020-01-12] MEDS: BusPIRone HCL 10 MG TABLET PO SCH ×2 (07:42→20:03)
[2020-01-12] MEDS: DOCUSATE SODIUM 100 MG CAPSULE PO SCH ×2 (07:42→20:18)
[2020-01-12] MEDS: ZIPRASIDONE HCL 40 MG CAPSULE PO SCH ×2 (07:42→17:41)
[2020-01-12] MEDS: SERTRALINE HCL 50 MG TABLET PO SCH ×2 (07:42→20:03)
[2020-01-12] MEDS: OLANZapine 10 MG TABLET PO SCH ×2 (07:42→20:03)
[2020-01-12 08:09] VITALS: BP 117/64
[2020-01-12 15:12] VITALS: BP 116/68
[2020-01-12] MEDS: ACETAMINOPHEN 325 MG TABLET PO PRN ×2 (16:12→19:45)
[2020-01-12] MEDS ORDERED: SODIUM CHLORIDE 0.9% 500 ML IV ONE (16:23)
[2020-01-12 19:00] VITALS: BP 123/76
[2020-01-13 03:57] VITALS: BP 136/74
[2020-01-13] MEDS: HEPARIN SODIUM,PORCINE 5,000 UNITS/ML VIAL SQ SCH ×3 (08:00→23:08)
[2020-01-13] MEDS: ZIPRASIDONE HCL 40 MG CAPSULE PO SCH ×2 (08:28→18:05)
[2020-01-13] MEDS: SERTRALINE HCL 50 MG TABLET PO SCH ×2 (08:29→20:17)
[2020-01-13] MEDS: BusPIRone HCL 10 MG TABLET PO SCH ×2 (08:29→20:17)
[2020-01-13] MEDS: OLANZapine 10 MG TABLET PO SCH ×2 (08:30→20:17)
[2020-01-13 08:33] VITALS: BP 120/81
[2020-01-13] MEDS: DOCUSATE SODIUM 100 MG CAPSULE PO SCH ×2 (08:33→20:18)
[2020-01-13] MEDS: ACETAMINOPHEN 325 MG TABLET PO PRN (15:32)
[2020-01-13 19:26] VITALS: BP 127/76
[2020-01-14 04:12] VITALS: BP 99/66
[2020-01-14] MEDS: HEPARIN SODIUM,PORCINE 5,000 UNITS/ML VIAL SQ SCH ×2 (08:00→16:00)
[2020-01-14 08:11] VITALS: BP 138/65
[2020-01-14] MEDS: OLANZapine 10 MG TABLET PO SCH ×2 (08:16→19:56)
[2020-01-14] MEDS: ZIPRASIDONE HCL 40 MG CAPSULE PO SCH ×2 (08:16→18:14)
[2020-01-14] MEDS: SERTRALINE HCL 50 MG TABLET PO SCH ×2 (08:16→19:57)
[2020-01-14] MEDS: BusPIRone HCL 10 MG TABLET PO SCH ×2 (08:16→19:57)
[2020-01-14] MEDS: DOCUSATE SODIUM 100 MG CAPSULE PO SCH ×2 (08:20→19:57)
[2020-01-14] MEDS: ACETAMINOPHEN 325 MG TABLET PO PRN ×2 (11:13→19:57)
[2020-01-14 19:48] VITALS: BP 118/73
[2020-01-15 04:13] VITALS: BP 111/62
[2020-01-15] MEDS: HEPARIN SODIUM,PORCINE 5,000 UNITS/ML VIAL SQ SCH ×5 (08:00→23:36)
[2020-01-15] MEDS: BusPIRone HCL 10 MG TABLET PO SCH ×2 (08:07→20:45)
[2020-01-15] MEDS: OLANZapine 10 MG TABLET PO SCH ×2 (08:07→20:46)
[2020-01-15] MEDS: ZIPRASIDONE HCL 40 MG CAPSULE PO SCH ×2 (08:07→18:10)
[2020-01-15] MEDS: SERTRALINE HCL 50 MG TABLET PO SCH ×2 (08:07→20:46)
[2020-01-15] MEDS: DOCUSATE SODIUM 100 MG CAPSULE PO SCH ×3 (08:08→20:49)
[2020-01-15 08:29] VITALS: BP 113/67
[2020-01-15] MEDS: ACETAMINOPHEN 325 MG TABLET PO PRN ×2 (08:34→13:32)
[2020-01-15 19:43] VITALS: BP 120/68
[2020-01-16 04:41] VITALS: BP 115/71
[2020-01-16] MEDS: DOCUSATE SODIUM 100 MG CAPSULE PO SCH ×2 (08:16→19:35)
[2020-01-16] MEDS: BusPIRone HCL 10 MG TABLET PO SCH ×2 (08:16→19:31)
[2020-01-16] MEDS: OLANZapine 10 MG TABLET PO SCH (08:16)
[2020-01-16] MEDS: SERTRALINE HCL 50 MG TABLET PO SCH ×2 (08:16→19:31)
[2020-01-16] MEDS: ZIPRASIDONE HCL 40 MG CAPSULE PO SCH (08:17)
[2020-01-16] MEDS: HEPARIN SODIUM,PORCINE 5,000 UNITS/ML VIAL SQ SCH ×3 (08:17→22:14)
[2020-01-16 08:19] VITALS: BP 119/71
[2020-01-16] MEDS: ACETAMINOPHEN 325 MG TABLET PO PRN ×2 (13:59→19:31)
[2020-01-16 16:10] VITALS: BP 114/67
[2020-01-16] MEDS: ZIPRASIDONE HCL 60 MG CAPSULE PO SCH (18:02)
[2020-01-16 19:00] VITALS: BP 153/85
[2020-01-16] MEDS: OLANZapine 7.5 MG TABLET PO SCH (19:31)
[2020-01-17 08:00] VITALS: BP 155/87
[2020-01-17] MEDS: BusPIRone HCL 10 MG TABLET PO SCH ×2 (09:06→19:46)
[2020-01-17] MEDS: HEPARIN SODIUM,PORCINE 5,000 UNITS/ML VIAL SQ SCH ×3 (09:06→23:19)
[2020-01-17] MEDS: OLANZapine 7.5 MG TABLET PO SCH ×2 (09:06→19:46)
[2020-01-17] MEDS: SERTRALINE HCL 50 MG TABLET PO SCH ×2 (09:06→19:46)
[2020-01-17] MEDS: DOCUSATE SODIUM 100 MG CAPSULE PO SCH ×2 (09:06→19:48)
[2020-01-17] MEDS: ZIPRASIDONE HCL 60 MG CAPSULE PO SCH ×2 (09:06→17:04)
[2020-01-17 19:33] VITALS: BP 123/74
[2020-01-17] MEDS: ACETAMINOPHEN 325 MG TABLET PO PRN (19:46)
[2020-01-18 04:39] VITALS: BP 128/72
[2020-01-18] MEDS: ACETAMINOPHEN 325 MG TABLET PO PRN (05:29)
[2020-01-18 08:16] VITALS: BP 124/78
[2020-01-18] MEDS: DOCUSATE SODIUM 100 MG CAPSULE PO SCH ×2 (08:44→20:31)
[2020-01-18] MEDS: SERTRALINE HCL 50 MG TABLET PO SCH ×2 (08:44→20:26)
[2020-01-18] MEDS: ZIPRASIDONE HCL 60 MG CAPSULE PO SCH ×2 (08:44→17:36)
[2020-01-18] MEDS: BusPIRone HCL 10 MG TABLET PO SCH ×2 (08:44→20:26)
[2020-01-18] MEDS: OLANZapine 7.5 MG TABLET PO SCH ×2 (08:44→20:26)
[2020-01-18] MEDS: HEPARIN SODIUM,PORCINE 5,000 UNITS/ML VIAL SQ SCH ×3 (08:44→23:01)
[2020-01-18 19:55] VITALS: BP 125/74
[2020-01-19 07:48] VITALS: BP 115/66
[2020-01-19] MEDS: HEPARIN SODIUM,PORCINE 5,000 UNITS/ML VIAL SQ SCH ×2 (08:00→16:00)
[2020-01-19] MEDS: ZIPRASIDONE HCL 60 MG CAPSULE PO SCH ×2 (08:19→17:37)
[2020-01-19] MEDS: SERTRALINE HCL 50 MG TABLET PO SCH ×2 (08:20→20:24)
[2020-01-19] MEDS: DOCUSATE SODIUM 100 MG CAPSULE PO SCH ×3 (08:20→20:28)
[2020-01-19] MEDS: OLANZapine 7.5 MG TABLET PO SCH ×2 (08:20→20:23)
[2020-01-19] MEDS: BusPIRone HCL 10 MG TABLET PO SCH ×2 (08:20→20:23)
[2020-01-19] MEDS: ACETAMINOPHEN 325 MG TABLET PO PRN ×2 (13:14→18:41)
[2020-01-19 15:28] VITALS: BP 117/77
[2020-01-19 19:00] VITALS: BP 121/76
[2020-01-20] MEDS: HEPARIN SODIUM,PORCINE 5,000 UNITS/ML VIAL SQ SCH ×5 (00:28→23:53)
[2020-01-20 04:00] VITALS: BP 117/66
[2020-01-20 07:57] VITALS: BP 118/74
[2020-01-20] MEDS: ZIPRASIDONE HCL 60 MG CAPSULE PO SCH ×2 (08:09→17:43)
[2020-01-20] MEDS: OLANZapine 7.5 MG TABLET PO SCH ×2 (08:09→20:28)
[2020-01-20] MEDS: DOCUSATE SODIUM 100 MG CAPSULE PO SCH ×3 (08:10→20:31)
[2020-01-20] MEDS: BusPIRone HCL 10 MG TABLET PO SCH ×2 (08:10→20:28)
[2020-01-20] MEDS: SERTRALINE HCL 50 MG TABLET PO SCH ×2 (08:10→20:29)
[2020-01-20] MEDS: ACETAMINOPHEN 325 MG TABLET PO PRN ×2 (08:33→18:14)
[2020-01-20 19:00] VITALS: BP 143/72
[2020-01-21] MEDS: HEPARIN SODIUM,PORCINE 5,000 UNITS/ML VIAL SQ SCH ×2 (08:00→15:50)
[2020-01-21] MEDS: OLANZapine 7.5 MG TABLET PO SCH ×2 (08:01→19:54)
[2020-01-21] MEDS: DOCUSATE SODIUM 100 MG CAPSULE PO SCH ×2 (08:02→19:59)
[2020-01-21] MEDS: ZIPRASIDONE HCL 60 MG CAPSULE PO SCH ×2 (08:02→17:56)
[2020-01-21] MEDS: BusPIRone HCL 10 MG TABLET PO SCH ×2 (08:02→19:54)
[2020-01-21] MEDS: SERTRALINE HCL 50 MG TABLET PO SCH ×2 (08:02→19:54)
[2020-01-21 08:24] VITALS: BP 147/91
[2020-01-21] MEDS: ACETAMINOPHEN 325 MG TABLET PO PRN (10:42)
[2020-01-21 20:00] VITALS: BP 126/77
[2020-01-22 05:20] VITALS: BP 117/76
[2020-01-22] MEDS: HEPARIN SODIUM,PORCINE 5,000 UNITS/ML VIAL SQ SCH ×4 (08:00→16:00)
[2020-01-22 08:45] VITALS: BP 120/62
[2020-01-22] MEDS: ZIPRASIDONE HCL 60 MG CAPSULE PO SCH ×2 (08:58→17:58)
[2020-01-22] MEDS: SERTRALINE HCL 50 MG TABLET PO SCH ×2 (08:59→20:15)
[2020-01-22] MEDS: BusPIRone HCL 10 MG TABLET PO SCH ×2 (08:59→20:15)
[2020-01-22] MEDS: DOCUSATE SODIUM 100 MG CAPSULE PO SCH ×3 (08:59→20:18)
[2020-01-22] MEDS: OLANZapine 7.5 MG TABLET PO SCH ×2 (08:59→20:16)
[2020-01-23 07:52] VITALS: BP 130/75
[2020-01-23] MEDS: DOCUSATE SODIUM 100 MG CAPSULE PO SCH ×3 (07:59→19:57)
[2020-01-23] MEDS: OLANZapine 7.5 MG TABLET PO SCH ×2 (07:59→19:55)
[2020-01-23] MEDS: HEPARIN SODIUM,PORCINE 5,000 UNITS/ML VIAL SQ SCH ×6 (07:59→23:34)
[2020-01-23] MEDS: ZIPRASIDONE HCL 60 MG CAPSULE PO SCH ×2 (07:59→17:40)
[2020-01-23] MEDS: BusPIRone HCL 10 MG TABLET PO SCH ×2 (07:59→19:55)
[2020-01-23] MEDS: SERTRALINE HCL 50 MG TABLET PO SCH ×2 (07:59→19:55)
[2020-01-23] MEDS ORDERED: ZIPR80CA2 PO (13:09)
[2020-01-23 20:25] VITALS: BP 118/78
[2020-01-24 05:40] VITALS: BP 108/61
[2020-01-24] MEDS: ACETAMINOPHEN 325 MG TABLET PO PRN ×3 (06:25→20:19)
[2020-01-24] MEDS: HEPARIN SODIUM,PORCINE 5,000 UNITS/ML VIAL SQ SCH ×3 (08:00→23:53)
[2020-01-24 08:25] VITALS: BP 118/73
[2020-01-24] MEDS: DOCUSATE SODIUM 100 MG CAPSULE PO SCH ×2 (09:00→20:22)
[2020-01-24] MEDS: SERTRALINE HCL 50 MG TABLET PO SCH ×2 (09:07→20:20)
[2020-01-24] MEDS: ZIPRASIDONE HCL 60 MG CAPSULE PO SCH ×2 (09:10→18:29)
[2020-01-24] MEDS: BusPIRone HCL 10 MG TABLET PO SCH ×2 (09:10→20:19)
[2020-01-24] MEDS: OLANZapine 7.5 MG TABLET PO SCH ×2 (09:10→20:20)
[2020-01-24 20:09] VITALS: BP 119/70
[2020-01-25 05:31] VITALS: BP 131/75
[2020-01-25] MEDS: HEPARIN SODIUM,PORCINE 5,000 UNITS/ML VIAL SQ SCH (08:00)
[2020-01-25 08:14] VITALS: BP 129/75
[2020-01-25] MEDS: BusPIRone HCL 10 MG TABLET PO SCH (08:43)
[2020-01-25] MEDS: ZIPRASIDONE HCL 60 MG CAPSULE PO SCH (08:43)
[2020-01-25] MEDS: SERTRALINE HCL 50 MG TABLET PO SCH (08:44)
[2020-01-25] MEDS: DOCUSATE SODIUM 100 MG CAPSULE PO SCH (09:17)
== END 2020-01-25 09:45 | DRG 885 ==
LOC: EMS 17:55 → 6S 19:30
PROVIDERS: ADMIT Hospitalist; ATTEND Hospitalist
DX: F20.9 Schizophrenia, unspecified (principal); R45.851 Suicidal ideations; F41.1 Generalized anxiety disorder; F43.20 Adjustment disorder, unspecified; Z76.5 Malingerer [conscious simulation]; Z20.828 Contact with and (suspected) exposure to other viral communicable diseases; Z28.21 Immunization not carried out because of patient refusal
CPT/HCPCS: 87426; G0480; J1644; J7040

== ENCOUNTER 2020-04-18 14:21 | Inpatient (IN) | payer OTHER ==
[~2020-04-18] VITALS: Ht 172.7 cm; Wt 79.0 kg
[~2020-04-18 14:21] MED LIST changes: -LISI-662 PO; +SERT-158 PO; -SERT50TA12 PO; +ZIPR80CA2 PO
[2020-04-18] MEDS ORDERED: SODIUM CHLORIDE 0.9% 250 ML IRRIG SOLUTION BOTTLE IRRIG ONE (15:30)
[2020-04-18] MEDS ORDERED: ACETAMINOPHEN 500 MG TABLET PO ONE (16:30)
[2020-04-18] MEDS ORDERED: ZOLPIDEM TARTRATE 5 MG TABLET PO PRN (16:30)
[2020-04-18] MEDS ORDERED: MAGNESIUM HYDROXIDE SUSPENSION 30 ML UDCUP PO PRN (16:30)
[2020-04-18 16:32] LABS: BASOPHILS % (AUTO) 0.5 % (0.0-2.0); EOSINOPHILS % (AUTO) 2.3 % (1.0-6.0); HEMATOCRIT 43.3 % (41-53); HEMOGLOBIN 14.6 g/dL (13.5-17.5); LYMPHOCYTES # (AUTO) 2.5 K/uL (1.0-4.8); LYMPHOCYTES % (AUTO) 34.4 % (22.0-44.0); MEAN CORPUSCULAR HEMOGLOBIN 30.7 pg (26.0-34.0); MEAN CORPUSCULAR HGB CONC 33.7 G/dL (31.0-37.0); MEAN CORPUSCULAR VOLUME 91 fL (80-100); MONOCYTES # (AUTO) 0.6 K/uL (0.1-1.0); MONOCYTES % (AUTO) 8.3 % (2.0-9.0); NEUTROPHILS # (AUTO) 3.9 K/uL (1.8-7.7); NEUTROPHILS % (AUTO) 54.5 % (40.0-70.0); PLATELET COUNT (AUTO) 220 K/uL (150-450); RED BLOOD CELL COUNT(AUTO) 4.75 MIL/uL (4.50-5.90); RED CELL DISTRIBUTION WIDTH 13.5 % (11.5-14.5)
[2020-04-18 16:58] LABS: ANION GAP 9 mmol/L (8-16); CALCIUM, TOTAL 9.2 mg/dL (8.8-10.5); CARBON DIOXIDE 28 mmol/L (22-29); CHLORIDE 102 mmol/L (98-107); CREATININE 1.06 mg/dL (0.60-1.30); GLOMERULAR FILTR. RATE CALC > 60 mL/min (>60); GLUCOSE,RANDOM 96 mg/dL (70-110); POTASSIUM 3.7 mmol/L (3.5-5.1); SODIUM SERUM 139 mmol/L (136-145); UREA NITROGEN, BLOOD 13 mg/dL (7-18)
[2020-04-18 16:58] LABS: COVID AG,FIA SOURCE NASOPHARYNGEAL
[2020-04-18 17:04] LABS: ALANINE AMINOTRANSFERASE 22 U/L (12-78); ALBUMIN 4.1 g/dL (3.4-5.0); ALKALINE PHOSPHATASE 82 U/L (46-116); ASPARTATE AMINOTRANSFERASE 13 U/L (15-37); BILIRUBIN,TOTAL 0.3 mg/dL (0.1-1.0); TOTAL PROTEIN, SERUM 7.4 g/dL (6.4-8.2)
[2020-04-18 17:25] LABS: AMPHET/METH SCREEN,URINE NEGATIVE (NEGATIVE); BARBITURATE SCREEN, URINE NEGATIVE (NEGATIVE); BENZODIAZEPINES SCREEN,URINE NEGATIVE (NEGATIVE); CANNABINOID SCREEN,URINE NEGATIVE (NEGATIVE); COCAINE SCREEN,URINE NEGATIVE (NEGATIVE); METHADONE SCREEN, URINE NEGATIVE (NEGATIVE); OPIATE SCREEN,URINE NEGATIVE (NEGATIVE)
[2020-04-18 17:26] LABS: PHENCYCLIDINE SCREEN,URINE NEGATIVE (NEGATIVE)
[2020-04-18 19:04] VITALS: BP 128/86
[2020-04-19 04:40] VITALS: BP 104/67
[2020-04-19] MEDS: FAMOTIDINE 20 MG TABLET PO SCH (08:10)
[2020-04-19 08:18] VITALS: BP 117/79
[2020-04-19] MEDS ORDERED: ZIPR60CA2 PO (17:30)
[2020-04-19 20:45] VITALS: BP 128/74
[2020-04-19] MEDS: BusPIRone HCL 10 MG TABLET PO SCH (21:00)
[2020-04-19] MEDS: OLANZapine 10 MG TABLET PO SCH (22:25)
[2020-04-20 03:35] VITALS: BP 99/65
[2020-04-20] MEDS: SERTRALINE HCL 50 MG TABLET PO SCH (08:02)
[2020-04-20] MEDS: OLANZapine 10 MG TABLET PO SCH ×3 (08:02→20:31)
[2020-04-20] MEDS: FAMOTIDINE 20 MG TABLET PO SCH (08:02)
[2020-04-20] MEDS: BusPIRone HCL 10 MG TABLET PO SCH ×2 (08:02→20:27)
[2020-04-20 20:30] VITALS: BP 116/80
[2020-04-21 05:20] VITALS: BP 110/68
[2020-04-21 07:24] VITALS: BP 113/72
[2020-04-21] MEDS: BusPIRone HCL 10 MG TABLET PO SCH ×2 (08:34→20:35)
[2020-04-21] MEDS: FAMOTIDINE 20 MG TABLET PO SCH (08:40)
[2020-04-21] MEDS: SERTRALINE HCL 50 MG TABLET PO SCH (08:40)
[2020-04-21] MEDS: OLANZapine 10 MG TABLET PO SCH ×2 (08:40→21:00)
[2020-04-21 20:34] VITALS: BP 140/82
[2020-04-22 04:41] VITALS: BP 105/72
[2020-04-22 07:17] VITALS: BP 109/74
[2020-04-22] MEDS: BusPIRone HCL 10 MG TABLET PO SCH ×2 (08:46→20:55)
[2020-04-22] MEDS: FAMOTIDINE 20 MG TABLET PO SCH (08:48)
[2020-04-22] MEDS: SERTRALINE HCL 50 MG TABLET PO SCH ×2 (08:49→20:54)
[2020-04-22] MEDS: OLANZapine 10 MG TABLET PO SCH (08:49)
[2020-04-22 19:40] VITALS: BP 116/63
[2020-04-23 04:50] VITALS: BP 120/65
[2020-04-23] MEDS: FAMOTIDINE 20 MG TABLET PO SCH (08:25)
[2020-04-23] MEDS: BusPIRone HCL 10 MG TABLET PO SCH ×2 (08:25→20:22)
[2020-04-23 08:33] VITALS: BP 122/61
[2020-04-23] MEDS: SERTRALINE HCL 50 MG TABLET PO SCH (20:22)
[2020-04-23 20:40] VITALS: BP 133/77
[2020-04-24 04:40] VITALS: BP 127/71
[2020-04-24 07:43] VITALS: BP 166/99
[2020-04-24 07:44] VITALS: BP 159/110
[2020-04-24] MEDS: BusPIRone HCL 10 MG TABLET PO SCH ×2 (08:27→20:25)
[2020-04-24] MEDS: FAMOTIDINE 20 MG TABLET PO SCH (08:32)
[2020-04-24 20:25] VITALS: BP 133/96
[2020-04-24] MEDS: TraZODone HCL 100 MG TABLET PO SCH (20:25)
[2020-04-24] MEDS: RisperiDONE 2 MG TABLET PO SCH (20:25)
[2020-04-24] MEDS: SERTRALINE HCL 50 MG TABLET PO SCH (20:25)
[2020-04-25 04:45] VITALS: BP 124/71
[2020-04-25 08:06] VITALS: BP 110/73
[2020-04-25] MEDS: BusPIRone HCL 10 MG TABLET PO SCH ×2 (08:32→20:49)
[2020-04-25] MEDS: FAMOTIDINE 20 MG TABLET PO SCH ×2 (08:32→08:40)
[2020-04-25 19:33] VITALS: BP 125/67
[2020-04-25] MEDS: RisperiDONE 2 MG TABLET PO SCH (20:49)
[2020-04-25] MEDS: SERTRALINE HCL 50 MG TABLET PO SCH (20:49)
[2020-04-25] MEDS: TraZODone HCL 100 MG TABLET PO SCH (20:49)
[2020-04-26 05:10] VITALS: BP 107/63
[2020-04-26 07:59] VITALS: BP 105/72
[2020-04-26] MEDS: BusPIRone HCL 10 MG TABLET PO SCH ×2 (08:41→21:30)
[2020-04-26] MEDS: FAMOTIDINE 20 MG TABLET PO SCH (08:41)
[2020-04-26 19:55] VITALS: BP 133/81
[2020-04-26] MEDS: SERTRALINE HCL 50 MG TABLET PO SCH (21:31)
[2020-04-26] MEDS: TraZODone HCL 100 MG TABLET PO SCH (21:31)
[2020-04-26] MEDS: RisperiDONE 2 MG TABLET PO SCH (21:31)
[2020-04-27 05:05] VITALS: BP 107/73
[2020-04-27 08:28] VITALS: BP 112/72
[2020-04-27] MEDS: FAMOTIDINE 20 MG TABLET PO SCH (08:28)
[2020-04-27] MEDS: BusPIRone HCL 10 MG TABLET PO SCH ×2 (08:28→20:03)
[2020-04-27 20:00] VITALS: BP 117/72
[2020-04-27] MEDS: RisperiDONE 2 MG TABLET PO SCH (20:03)
[2020-04-27] MEDS: TraZODone HCL 100 MG TABLET PO SCH (20:03)
[2020-04-27] MEDS: SERTRALINE HCL 50 MG TABLET PO SCH (20:03)
[2020-04-28 04:30] VITALS: BP 110/61
[2020-04-28 07:30] VITALS: BP 118/68
[2020-04-28] MEDS: FAMOTIDINE 20 MG TABLET PO SCH ×2 (08:36→08:37)
[2020-04-28] MEDS: BusPIRone HCL 10 MG TABLET PO SCH ×2 (12:10→20:07)
[2020-04-28] MEDS: ACETAMINOPHEN 325 MG TABLET PO PRN (15:45)
[2020-04-28 20:00] VITALS: BP 129/70
[2020-04-28] MEDS: TraZODone HCL 100 MG TABLET PO SCH (20:07)
[2020-04-28] MEDS: SERTRALINE HCL 50 MG TABLET PO SCH (20:07)
[2020-04-28] MEDS: RisperiDONE 2 MG TABLET PO SCH (20:07)
[2020-04-29 05:23] VITALS: BP 106/50
[2020-04-29] MEDS: FAMOTIDINE 20 MG TABLET PO SCH (08:05)
[2020-04-29] MEDS: BusPIRone HCL 10 MG TABLET PO SCH ×2 (08:05→20:36)
[2020-04-29] MEDS: RisperiDONE 2 MG TABLET PO SCH ×2 (08:05→20:36)
[2020-04-29 08:20] VITALS: BP 119/67
[2020-04-29] MEDS: TraZODone HCL 100 MG TABLET PO SCH (20:35)
[2020-04-29 20:36] VITALS: BP 116/72
[2020-04-29] MEDS: SERTRALINE HCL 50 MG TABLET PO SCH (20:36)
[2020-04-30 04:30] VITALS: BP 103/53
[2020-04-30] MEDS: RisperiDONE 2 MG TABLET PO SCH ×2 (08:25→20:07)
[2020-04-30] MEDS: BusPIRone HCL 10 MG TABLET PO SCH ×2 (08:25→20:07)
[2020-04-30] MEDS: FAMOTIDINE 20 MG TABLET PO SCH (08:25)
[2020-04-30 08:56] VITALS: BP 123/77
[2020-04-30 19:37] VITALS: BP 112/61
[2020-04-30] MEDS: TraZODone HCL 100 MG TABLET PO SCH (20:07)
[2020-04-30] MEDS: SERTRALINE HCL 50 MG TABLET PO SCH (20:07)
[2020-05-01 04:55] VITALS: BP 107/53
[2020-05-01 08:15] VITALS: BP 108/64
[2020-05-01] MEDS: BusPIRone HCL 10 MG TABLET PO SCH ×2 (08:20→20:26)
[2020-05-01] MEDS: FAMOTIDINE 20 MG TABLET PO SCH (08:20)
[2020-05-01] MEDS: RisperiDONE 2 MG TABLET PO SCH ×2 (08:20→20:26)
[2020-05-01 20:17] VITALS: BP 122/71
[2020-05-01] MEDS: TraZODone HCL 100 MG TABLET PO SCH (20:26)
[2020-05-01] MEDS: SERTRALINE HCL 50 MG TABLET PO SCH (20:26)
[2020-05-02 05:11] VITALS: BP 112/70
[2020-05-02 08:15] VITALS: BP 125/74
[2020-05-02] MEDS: RisperiDONE 2 MG TABLET PO SCH ×2 (08:34→21:01)
[2020-05-02] MEDS: FAMOTIDINE 20 MG TABLET PO SCH (08:34)
[2020-05-02] MEDS: BusPIRone HCL 10 MG TABLET PO SCH ×2 (08:34→21:01)
[2020-05-02 20:48] VITALS: BP 138/66
[2020-05-02] MEDS: TraZODone HCL 100 MG TABLET PO SCH (21:01)
[2020-05-02] MEDS: SERTRALINE HCL 50 MG TABLET PO SCH (21:01)
[2020-05-03 04:33] VITALS: BP 99/62
[2020-05-03 07:45] VITALS: BP 109/71
[2020-05-03] MEDS: RisperiDONE 2 MG TABLET PO SCH ×2 (08:35→20:16)
[2020-05-03] MEDS: BusPIRone HCL 10 MG TABLET PO SCH ×2 (08:35→20:16)
[2020-05-03] MEDS: FAMOTIDINE 20 MG TABLET PO SCH (08:37)
[2020-05-03 20:15] VITALS: BP 121/57
[2020-05-03] MEDS: SERTRALINE HCL 50 MG TABLET PO SCH (20:16)
[2020-05-03] MEDS: TraZODone HCL 100 MG TABLET PO SCH (20:16)
[2020-05-04 05:00] VITALS: BP 101/58
[2020-05-04 08:26] VITALS: BP 108/72
[2020-05-04] MEDS: RisperiDONE 2 MG TABLET PO SCH ×2 (08:28→20:04)
[2020-05-04] MEDS: BusPIRone HCL 10 MG TABLET PO SCH ×2 (08:28→20:04)
[2020-05-04] MEDS: FAMOTIDINE 20 MG TABLET PO SCH (08:28)
[2020-05-04 19:57] VITALS: BP 114/64
[2020-05-04] MEDS: ACETAMINOPHEN 325 MG TABLET PO PRN (20:04)
[2020-05-04] MEDS: TraZODone HCL 100 MG TABLET PO SCH (20:04)
[2020-05-04] MEDS: SERTRALINE HCL 50 MG TABLET PO SCH (20:04)
[2020-05-05 04:40] VITALS: BP 97/63
[2020-05-05 08:27] VITALS: BP 117/58
[2020-05-05] MEDS: RisperiDONE 2 MG TABLET PO SCH ×2 (08:38→20:28)
[2020-05-05] MEDS: BusPIRone HCL 10 MG TABLET PO SCH ×2 (08:38→20:28)
[2020-05-05] MEDS: FAMOTIDINE 20 MG TABLET PO SCH (09:00)
[2020-05-05 19:44] VITALS: BP 134/81
[2020-05-05] MEDS: TraZODone HCL 100 MG TABLET PO SCH (20:28)
[2020-05-05] MEDS: SERTRALINE HCL 50 MG TABLET PO SCH (20:28)
[2020-05-06 05:28] VITALS: BP 129/58
[2020-05-06 07:35] VITALS: BP 107/73
[2020-05-06] MEDS: RisperiDONE 2 MG TABLET PO SCH (08:32)
[2020-05-06] MEDS: BusPIRone HCL 10 MG TABLET PO SCH (08:32)
[2020-05-06] MEDS: FAMOTIDINE 20 MG TABLET PO SCH ×2 (08:32→08:38)
[2020-05-06] MEDS ORDERED: BUSP10TA23 PO (13:10)
[2020-05-06] MEDS ORDERED: FAMO20 PO (13:10)
[2020-05-06] MEDS ORDERED: RISP2TAB45 PO (13:11)
[2020-05-06] MEDS ORDERED: RISP2TAB76 PO (13:14)
[2020-05-06] MEDS ORDERED: TRAZ-257 PO (13:16)
[2020-05-06] MEDS ORDERED: ACET-2247 PO (13:19)
[2020-05-06] MEDS ORDERED: MOM30 PO (13:20)
== END 2020-05-06 17:40 | DRG 885 ==
LOC: EMS 14:34 → 6S 17:39
PROVIDERS: ADMIT Internal Medicine; ATTEND Internal Medicine
DX: F25.1 Schizoaffective disorder, depressive type (principal); R45.851 Suicidal ideations; S61.512A Laceration without foreign body of left wrist, initial encounter; I10 Essential (primary) hypertension; F60.2 Antisocial personality disorder; F17.210 Nicotine dependence, cigarettes, uncomplicated; F43.22 Adjustment disorder with anxiety; Z20.822 Contact with and (suspected) exposure to COVID-19; Z79.899 Other long term (current) drug therapy; Z90.89 Acquired absence of other organs; X78.8XXA Intentional self-harm by other sharp object, initial encounter; Y93.89 Activity, other specified; Y99.8 Other external cause status; Y92.148 Other place in prison as the place of occurrence of the external cause
CPT/HCPCS: 87426; 99285; G0480

== ENCOUNTER 2020-05-12 21:36 | Inpatient (IN) | payer OTHER ==
[~2020-05-12] VITALS: Ht 172.7 cm; Wt 75.0 kg
[~2020-05-12 21:36] MED LIST changes: +ACET-2247 PO; +FAMO20 PO; +MOM30 PO; -OLAN7.5T2 PO; +RISP2TAB45 PO; +RISP2TAB76 PO; +TRAZ-257 PO; -ZIPR80CA2 PO
[2020-05-12 22:35] LABS: AMPHET/METH SCREEN,URINE NEGATIVE (NEGATIVE); BARBITURATE SCREEN, URINE NEGATIVE (NEGATIVE); BENZODIAZEPINES SCREEN,URINE NEGATIVE (NEGATIVE); CANNABINOID SCREEN,URINE NEGATIVE (NEGATIVE); COCAINE SCREEN,URINE NEGATIVE (NEGATIVE); METHADONE SCREEN, URINE NEGATIVE (NEGATIVE); OPIATE SCREEN,URINE NEGATIVE (NEGATIVE)
[2020-05-12 22:38] LABS: PHENCYCLIDINE SCREEN,URINE NEGATIVE (NEGATIVE)
[2020-05-12] MEDS ORDERED: IBUPROFEN 800 MG TABLET PO ONE (23:15)
[2020-05-12 23:26] LABS: COVID AG,FIA SOURCE NASOPHARYNGEAL
[2020-05-12] MEDS ORDERED: GuaiFENesin/D-METHORPHAN [SUGAR-FREE] 200-20MG/10 ML SYRUP UDCUP PO PRN (23:30)
[2020-05-12] MEDS ORDERED: ALBUTEROL SULFATE HFA 90 MCG/PUFF 8 GM INHALER IH PRN (23:30)
[2020-05-12] MEDS ORDERED: PETROLATUM,WHITE 28 GM JELLY TP PRN (23:30)
[2020-05-12] MEDS ORDERED: NICOTINE 14 MG/24 HOUR PATCH TD PRN (23:30)
[2020-05-12] MEDS ORDERED: ACETAMINOPHEN 325 MG TABLET PO PRN (23:30)
[2020-05-12] MEDS ORDERED: ONDANSETRON HCL 4 MG/2 ML VIAL IVP PRN (23:30)
[2020-05-12] MEDS ORDERED: MAG HYDROX/AL HYDROX/SIMETH ES 30 ML SUSPENSION UDCUP PO PRN (23:30)
[2020-05-12] MEDS ORDERED: ONDANSETRON HCL 4 MG TABLET PO PRN (23:30)
[2020-05-12] MEDS ORDERED: DOCUSATE SODIUM 100 MG CAPSULE PO PRN (23:30)
[2020-05-12] MEDS ORDERED: MAGNESIUM HYDROXIDE SUSPENSION 30 ML UDCUP PO PRN (23:30)
[2020-05-12] MEDS ORDERED: LOPERAMIDE HCL 2 MG CAPSULE PO PRN (23:30)
[2020-05-12] MEDS ORDERED: IBUPROFEN 400 MG TABLET PO PRN (23:30)
[2020-05-12] MEDS ORDERED: CloNIDine HCL 0.1 MG TABLET PO PRN (23:30)
[2020-05-13] MEDS ORDERED: INFLUENZA VIRUS VACCINE QVS 2020-21 (6MO+)/PF 60 MCG/0.5 ML SYRINGE IM ONE (02:00)
[2020-05-13 03:40] VITALS: BP 119/76
[2020-05-13 07:28] VITALS: BP 107/58
[2020-05-13] MEDS: RisperiDONE 2 MG TABLET PO SCH ×2 (12:06→20:13)
[2020-05-13 19:45] VITALS: BP 121/70
[2020-05-13] MEDS: SERTRALINE HCL 50 MG TABLET PO SCH (20:13)
[2020-05-14 04:50] VITALS: BP 96/60
[2020-05-14 08:23] VITALS: BP 118/75
[2020-05-14] MEDS: RisperiDONE 2 MG TABLET PO SCH ×2 (08:41→08:49)
[2020-05-14 19:40] VITALS: BP 110/71
[2020-05-14] MEDS: SERTRALINE HCL 50 MG TABLET PO SCH (20:10)
[2020-05-14] MEDS: ACETAMINOPHEN 325 MG TABLET PO PRN (23:34)
[2020-05-15 05:33] VITALS: BP 102/59
[2020-05-15 07:45] VITALS: BP 114/70
[2020-05-15 19:57] VITALS: BP 103/52
[2020-05-15] MEDS: SERTRALINE HCL 50 MG TABLET PO SCH (21:11)
[2020-05-16 05:26] VITALS: BP 115/74
[2020-05-16 08:08] VITALS: BP 110/59
[2020-05-16 20:08] VITALS: BP 110/60
[2020-05-16] MEDS: SERTRALINE HCL 50 MG TABLET PO SCH (20:32)
[2020-05-16] MEDS: RisperiDONE 2 MG TABLET PO SCH (20:32)
[2020-05-17 05:31] VITALS: BP 96/57
[2020-05-17 08:18] VITALS: BP 97/59
[2020-05-17] MEDS: ACETAMINOPHEN 325 MG TABLET PO PRN (16:13)
[2020-05-17 20:13] VITALS: BP 108/49
[2020-05-17] MEDS: RisperiDONE 2 MG TABLET PO SCH (20:34)
[2020-05-17] MEDS: SERTRALINE HCL 100 MG TABLET PO SCH (20:34)
[2020-05-18 04:05] VITALS: BP 99/54
[2020-05-18 08:15] VITALS: BP 103/62
[2020-05-18 19:55] VITALS: BP 111/62
[2020-05-18] MEDS: RisperiDONE 2 MG TABLET PO SCH (20:11)
[2020-05-18] MEDS: SERTRALINE HCL 100 MG TABLET PO SCH (20:11)
[2020-05-19 04:30] VITALS: BP 97/59
[2020-05-19 07:37] VITALS: BP 99/58
[2020-05-19 19:49] VITALS: BP 108/65
[2020-05-19] MEDS: SERTRALINE HCL 100 MG TABLET PO SCH (20:01)
[2020-05-19] MEDS: RisperiDONE 2 MG TABLET PO SCH (20:01)
[2020-05-20 04:30] VITALS: BP 102/55
[2020-05-20 08:10] VITALS: BP 107/64
== END 2020-05-20 15:25 | DRG 885 ==
LOC: EMS 21:36 → 6S 23:30
PROVIDERS: ADMIT Internal Medicine; ATTEND Internal Medicine
DX: F25.1 Schizoaffective disorder, depressive type (principal); R45.851 Suicidal ideations; Z20.822 Contact with and (suspected) exposure to COVID-19; F41.9 Anxiety disorder, unspecified; F60.2 Antisocial personality disorder; I10 Essential (primary) hypertension; F17.210 Nicotine dependence, cigarettes, uncomplicated; F15.10 Other stimulant abuse, uncomplicated; F43.20 Adjustment disorder, unspecified; R53.83 Other fatigue; F11.10 Opioid abuse, uncomplicated
CPT/HCPCS: 87081; 87426; 99285

== ENCOUNTER 2020-11-05 18:59 | Inpatient (IN) | payer OTHER ==
[~2020-11-05] VITALS: Ht 170.2 cm; Wt 73.4 kg
[~2020-11-05 18:59] MED LIST changes: -ACET-2247 PO; -BUSP10TA23 PO; -FAMO20 PO; -MOM30 PO; -RISP2TAB76 PO; -TRAZ-257 PO
[2020-11-05 19:32] LABS: COVID AG,FIA SOURCE NASOPHARYNGEAL
[2020-11-05 19:41] LABS: EOSINOPHILS % (AUTO) 3.3 % (1.0-6.0); HEMATOCRIT 46.9 % (41-53); HEMOGLOBIN 15.7 g/dL (13.5-17.5); LYMPHOCYTES # (AUTO) 2.9 K/uL (1.0-4.8); MEAN CORPUSCULAR HEMOGLOBIN 30.8 pg (26.0-34.0); MEAN CORPUSCULAR HGB CONC 33.4 G/dL (31.0-37.0); MEAN CORPUSCULAR VOLUME 92 fL (80-100); MONOCYTES # (AUTO) 0.5 K/uL (0.1-1.0); MONOCYTES % (AUTO) 7.6 % (2.0-9.0); NEUTROPHILS # (AUTO) 3.2 K/uL (1.8-7.7); NEUTROPHILS % (AUTO) 46.1 % (40.0-70.0); PLATELET COUNT (AUTO) 215 K/uL (150-450); RED CELL DISTRIBUTION WIDTH 13.2 % (11.5-14.5)
[2020-11-05] MEDS ORDERED: ONDANSETRON HCL 4 MG/2 ML VIAL IVP PRN ×2 (19:45→20:00)
[2020-11-05] MEDS ORDERED: ACETAMINOPHEN 325 MG TABLET PO PRN (19:45)
[2020-11-05 19:51] LABS: ANION GAP 7 mmol/L (8-16); CALCIUM, TOTAL 9.1 mg/dL (8.8-10.5); CARBON DIOXIDE 29 mmol/L (22-29); CHLORIDE 105 mmol/L (98-107); CREATININE 1.02 mg/dL (0.60-1.30); GLOMERULAR FILTR. RATE CALC > 60 mL/min (>60); GLUCOSE,RANDOM 91 mg/dL (70-110); SODIUM SERUM 141 mmol/L (136-145); UREA NITROGEN, BLOOD 12 mg/dL (7-18)
[2020-11-05 19:58] LABS: ALANINE AMINOTRANSFERASE 22 U/L (12-78); ALKALINE PHOSPHATASE 81 U/L (46-116); ASPARTATE AMINOTRANSFERASE 13 U/L (15-37); BILIRUBIN,TOTAL 0.3 mg/dL (0.1-1.0); TOTAL PROTEIN, SERUM 7.3 g/dL (6.4-8.2)
[2020-11-05] MEDS ORDERED: LISI2.5T91 PO (20:09)
[2020-11-05] MEDS ORDERED: BUSP7.5T7 PO (20:09)
[2020-11-05 21:04] VITALS: BP 104/68
[2020-11-05] MEDS ORDERED: PNEUMOCOCCAL VACCINE POLYVALENT 0.5 ML VIAL [PPSV23] IM. ONE (23:30)
[2020-11-06 05:15] VITALS: BP 105/55
[2020-11-06 06:43] LABS: AMPHET/METH SCREEN,URINE NEGATIVE (NEGATIVE); BARBITURATE SCREEN, URINE NEGATIVE (NEGATIVE); BENZODIAZEPINES SCREEN,URINE NEGATIVE (NEGATIVE); CANNABINOID SCREEN,URINE NEGATIVE (NEGATIVE); COCAINE SCREEN,URINE NEGATIVE (NEGATIVE); METHADONE SCREEN, URINE NEGATIVE (NEGATIVE); OPIATE SCREEN,URINE NEGATIVE (NEGATIVE)
[2020-11-06 06:45] LABS: PHENCYCLIDINE SCREEN,URINE NEGATIVE (NEGATIVE)
[2020-11-06 08:00] VITALS: BP 117/69
[2020-11-06] MEDS: HEPARIN SODIUM,PORCINE 5,000 UNITS/ML VIAL SQ SCH ×2 (08:00)
[2020-11-06] MEDS ORDERED: LISINOPRIL 5 MG TABLET PO SCH (09:00)
[2020-11-06] MEDS ORDERED: IBUPROFEN 200 MG TABLET PO PRN (09:45)
[2020-11-06 14:58] VITALS: BP 122/61
[2020-11-06 20:07] VITALS: BP 107/70
[2020-11-06] MEDS: SERTRALINE HCL 100 MG TABLET PO SCH (20:59)
[2020-11-06] MEDS: RisperiDONE 2 MG TABLET PO SCH (20:59)
[2020-11-07 05:45] VITALS: BP 123/66
[2020-11-07 08:23] VITALS: BP 108/59
[2020-11-07 20:17] VITALS: BP 123/75
[2020-11-07] MEDS: RisperiDONE 2 MG TABLET PO SCH (21:08)
[2020-11-07] MEDS: SERTRALINE HCL 100 MG TABLET PO SCH (21:08)
[2020-11-08 05:00] VITALS: BP 106/56
[2020-11-08 08:00] VITALS: BP 114/75
[2020-11-08 15:46] VITALS: BP 128/77
[2020-11-08 19:30] VITALS: BP 118/64
[2020-11-08] MEDS: RisperiDONE 2 MG TABLET PO SCH (20:41)
[2020-11-08] MEDS: SERTRALINE HCL 100 MG TABLET PO SCH (20:41)
[2020-11-09 05:45] VITALS: BP 101/54
[2020-11-09 08:14] VITALS: BP 112/58
[2020-11-09] MEDS: ACETAMINOPHEN 325 MG TABLET PO PRN (12:59)
[2020-11-09 16:00] VITALS: BP 132/85
[2020-11-09 20:00] VITALS: BP 111/55
[2020-11-09] MEDS: RisperiDONE 2 MG TABLET PO SCH (20:29)
[2020-11-09] MEDS: SERTRALINE HCL 100 MG TABLET PO SCH (20:29)
[2020-11-09 23:20] VITALS: BP 109/65
[2020-11-10 05:30] VITALS: BP 105/53
[2020-11-10 08:24] VITALS: BP 136/78
[2020-11-10] MEDS: ACETAMINOPHEN 325 MG TABLET PO PRN ×3 (08:29→18:28)
[2020-11-10 16:27] VITALS: BP 117/58
[2020-11-10 19:08] VITALS: BP 118/58
[2020-11-10] MEDS: RisperiDONE 2 MG TABLET PO SCH (19:57)
[2020-11-10] MEDS: SERTRALINE HCL 100 MG TABLET PO SCH (19:57)
[2020-11-11 05:01] VITALS: BP 105/61
[2020-11-11 07:57] VITALS: BP 138/80
[2020-11-11] MEDS ORDERED: MULTIVITAMINS WITH MINERALS, THERAPEUTIC TABLET PO SCH (09:00)
[2020-11-11] MEDS: VENLAFAXINE HCL 75 MG ER CAPSULE PO SCH (11:56)
[2020-11-11 15:32] VITALS: BP 141/77
[2020-11-11 19:30] VITALS: BP 117/76
[2020-11-11] MEDS: RisperiDONE 2 MG TABLET PO SCH (21:00)
[2020-11-11] MEDS: SERTRALINE HCL 100 MG TABLET PO SCH (21:00)
[2020-11-12 04:35] VITALS: BP 114/63
[2020-11-12 07:21] VITALS: BP 106/65
[2020-11-12] MEDS: VENLAFAXINE HCL 75 MG ER CAPSULE PO SCH (08:14)
[2020-11-12 15:14] VITALS: BP 118/68
[2020-11-12] MEDS: ACETAMINOPHEN 325 MG TABLET PO PRN (18:25)
[2020-11-12 19:30] VITALS: BP 131/90
[2020-11-12] MEDS: RisperiDONE 2 MG TABLET PO SCH (21:23)
[2020-11-12] MEDS: SERTRALINE HCL 100 MG TABLET PO SCH (21:24)
[2020-11-13 05:30] VITALS: BP 118/72
[2020-11-13 07:34] VITALS: BP 108/52
[2020-11-13] MEDS: VENLAFAXINE HCL 75 MG ER CAPSULE PO SCH (08:09)
[2020-11-13] MEDS ORDERED: VENL-67 PO (09:52)
[2020-11-13] MEDS ORDERED: ACET650S24 PR (10:03)
[2020-11-13] MEDS ORDERED: IBUP-2759 PO (10:05)
== END 2020-11-13 16:25 | DRG 552 ==
LOC: EMS 19:02 → 6S 20:00
PROVIDERS: ADMIT Internal Medicine; ATTEND Internal Medicine
DX: S13.9XXA Sprain of joints and ligaments of unspecified parts of neck, initial encounter (principal); R45.851 Suicidal ideations; F25.1 Schizoaffective disorder, depressive type; I10 Essential (primary) hypertension; Z20.822 Contact with and (suspected) exposure to COVID-19; F60.2 Antisocial personality disorder; F41.9 Anxiety disorder, unspecified; F11.90 Opioid use, unspecified, uncomplicated; Z79.899 Other long term (current) drug therapy; Z87.891 Personal history of nicotine dependence; X58.XXXA Exposure to other specified factors, initial encounter; Y93.89 Activity, other specified; Y92.89 Other specified places as the place of occurrence of the external cause; Y99.8 Other external cause status
CPT/HCPCS: 80053; 85025; 99285; G0480; J1644

== ENCOUNTER 2020-11-27 15:16 | Inpatient (IN) | payer OTHER ==
[~2020-11-27] VITALS: Ht 172.7 cm; Wt 74.6 kg
[~2020-11-27 15:16] MED LIST changes: +ACET650S24 PR; +IBUP-2759 PO; +VENL-67 PO
[2020-11-27 16:25] LABS: BASOPHILS % (AUTO) 0.6 % (0.0-2.0); HEMATOCRIT 45.2 % (41-53); HEMOGLOBIN 14.9 g/dL (13.5-17.5); LYMPHOCYTES # (AUTO) 3.2 K/uL (1.0-4.8); LYMPHOCYTES % (AUTO) 37.1 % (22.0-44.0); MEAN CORPUSCULAR HEMOGLOBIN 30.2 pg (26.0-34.0); MEAN CORPUSCULAR VOLUME 92 fL (80-100); MONOCYTES # (AUTO) 0.7 K/uL (0.1-1.0); MONOCYTES % (AUTO) 7.5 % (2.0-9.0); NEUTROPHILS # (AUTO) 4.5 K/uL (1.8-7.7); NEUTROPHILS % (AUTO) 51.8 % (40.0-70.0); PLATELET COUNT (AUTO) 238 K/uL (150-450); RED BLOOD CELL COUNT(AUTO) 4.94 MIL/uL (4.50-5.90); RED CELL DISTRIBUTION WIDTH 13.4 % (11.5-14.5)
[2020-11-27] MEDS ORDERED: ACETAMINOPHEN 325 MG TABLET PO ONE (16:45)
[2020-11-27 16:48] LABS: ANION GAP 7 mmol/L (8-16); CALCIUM, TOTAL 8.8 mg/dL (8.8-10.5); CARBON DIOXIDE 29 mmol/L (22-29); CHLORIDE 104 mmol/L (98-107); CREATININE 0.95 mg/dL (0.60-1.30); GLOMERULAR FILTR. RATE CALC > 60 mL/min (>60); GLUCOSE,RANDOM 82 mg/dL (70-110); POTASSIUM 4.1 mmol/L (3.5-5.1); SODIUM SERUM 140 mmol/L (136-145); UREA NITROGEN, BLOOD 13 mg/dL (7-18)
[2020-11-27 16:51] LABS: ALANINE AMINOTRANSFERASE 24 U/L (12-78); ALBUMIN 3.9 g/dL (3.4-5.0); ALKALINE PHOSPHATASE 93 U/L (46-116); ASPARTATE AMINOTRANSFERASE 18 U/L (15-37); BILIRUBIN,TOTAL 0.3 mg/dL (0.1-1.0); TOTAL PROTEIN, SERUM 7.3 g/dL (6.4-8.2)
[2020-11-27 17:11] LABS: COVID AG,FIA SOURCE NASOPHARYNGEAL
[2020-11-27 17:48] LABS: AMPHET/METH SCREEN,URINE NEGATIVE (NEGATIVE); BARBITURATE SCREEN, URINE NEGATIVE (NEGATIVE); BENZODIAZEPINES SCREEN,URINE NEGATIVE (NEGATIVE); CANNABINOID SCREEN,URINE NEGATIVE (NEGATIVE); COCAINE SCREEN,URINE NEGATIVE (NEGATIVE); METHADONE SCREEN, URINE NEGATIVE (NEGATIVE); OPIATE SCREEN,URINE NEGATIVE (NEGATIVE)
[2020-11-27 17:49] LABS: PHENCYCLIDINE SCREEN,URINE NEGATIVE (NEGATIVE)
[2020-11-27] MEDS ORDERED: DOCUSATE SODIUM 100 MG CAPSULE PO PRN (18:00)
[2020-11-27] MEDS ORDERED: ONDANSETRON HCL 4 MG/2 ML VIAL IVP PRN (18:00)
[2020-11-27] MEDS ORDERED: BISACODYL 10 MG RECTAL RECTAL SUPPOSITORY PR PRN (18:00)
[2020-11-27] MEDS ORDERED: ALBUTEROL SULFATE 2.5 MG/0.5 ML NEB SOLUTION NEB PRN (18:00)
[2020-11-27] MEDS ORDERED: IPRATROPIUM BROMIDE 0.5 MG/2.5 ML NEB SOLUTION NEB PRN (18:00)
[2020-11-27] MEDS ORDERED: 0.9% SODIUM CHLORIDE 10 ML SYRINGE IVP PRN (18:00)
[2020-11-27] MEDS ORDERED: MAGNESIUM HYDROXIDE SUSPENSION 30 ML UDCUP PO PRN (18:00)
[2020-11-27 18:19] VITALS: BP 134/89
[2020-11-27] MEDS: FAMOTIDINE 20 MG TABLET PO SCH (20:42)
[2020-11-28 04:52] VITALS: BP 126/77
[2020-11-28 08:18] VITALS: BP 122/72
[2020-11-28] MEDS: FAMOTIDINE 20 MG TABLET PO SCH ×2 (09:00→21:00)
[2020-11-28 19:47] VITALS: BP 114/75
[2020-11-28] MEDS: OLANZapine 10 MG TABLET PO SCH (21:01)
[2020-11-28] MEDS: BusPIRone HCL 5 MG TABLET PO SCH (21:01)
[2020-11-29 03:43] VITALS: BP 114/64
[2020-11-29 08:13] VITALS: BP 129/86
[2020-11-29] MEDS: FAMOTIDINE 20 MG TABLET PO SCH ×2 (08:17→20:29)
[2020-11-29] MEDS: SERTRALINE HCL 50 MG TABLET PO SCH (08:18)
[2020-11-29] MEDS: OLANZapine 10 MG TABLET PO SCH ×2 (08:18→20:28)
[2020-11-29] MEDS: BusPIRone HCL 5 MG TABLET PO SCH ×2 (08:18→20:28)
[2020-11-29 15:35] VITALS: BP 124/71
[2020-11-29 19:55] VITALS: BP 118/84
[2020-11-30 04:36] VITALS: BP 104/67
[2020-11-30] MEDS: ACETAMINOPHEN 325 MG TABLET PO PRN (04:49)
[2020-11-30 08:02] VITALS: BP 175/101
[2020-11-30 08:03] VITALS: BP 155/88
[2020-11-30] MEDS: FAMOTIDINE 20 MG TABLET PO SCH ×2 (08:42→20:37)
[2020-11-30] MEDS: OLANZapine 10 MG TABLET PO SCH ×2 (08:42→20:38)
[2020-11-30] MEDS: BusPIRone HCL 5 MG TABLET PO SCH (08:42)
[2020-11-30] MEDS: SERTRALINE HCL 50 MG TABLET PO SCH ×2 (08:42→20:38)
[2020-11-30 13:20] VITALS: BP 142/78
[2020-11-30 19:47] VITALS: BP_SYST 123; BP_SYST 132; BP_DIAS 65; BP_DIAS 73
[2020-11-30] MEDS: LISINOPRIL 5 MG TABLET PO SCH (20:37)
[2020-11-30] MEDS: BusPIRone HCL 10 MG TABLET PO SCH (20:37)
[2020-12-01 04:26] VITALS: BP 122/67
[2020-12-01 07:41] VITALS: BP 107/68
[2020-12-01] MEDS: FAMOTIDINE 20 MG TABLET PO SCH ×3 (09:00→19:55)
[2020-12-01] MEDS: LISINOPRIL 5 MG TABLET PO SCH ×2 (09:35→19:59)
[2020-12-01] MEDS: OLANZapine 10 MG TABLET PO SCH ×2 (09:35→19:56)
[2020-12-01] MEDS: BusPIRone HCL 10 MG TABLET PO SCH ×2 (09:35→19:55)
[2020-12-01] MEDS: SERTRALINE HCL 50 MG TABLET PO SCH ×2 (09:35→19:55)
[2020-12-01] MEDS: ACETAMINOPHEN 325 MG TABLET PO PRN ×2 (12:30→19:56)
[2020-12-01 15:26] VITALS: BP 124/68
[2020-12-01 20:08] VITALS: BP 148/78
[2020-12-02 05:21] VITALS: BP 131/80
[2020-12-02 07:29] VITALS: BP 125/64
[2020-12-02] MEDS: OLANZapine 10 MG TABLET PO SCH ×2 (08:20→20:00)
[2020-12-02] MEDS: SERTRALINE HCL 50 MG TABLET PO SCH ×2 (08:21→20:00)
[2020-12-02] MEDS: BusPIRone HCL 10 MG TABLET PO SCH ×2 (08:21→20:00)
[2020-12-02] MEDS: FAMOTIDINE 20 MG TABLET PO SCH ×2 (08:21→20:00)
[2020-12-02] MEDS: LISINOPRIL 5 MG TABLET PO SCH ×2 (08:21→20:00)
[2020-12-02 15:14] VITALS: BP 108/60
[2020-12-02 19:59] VITALS: BP 138/78
[2020-12-03 04:27] VITALS: BP 99/54
[2020-12-03 08:28] VITALS: BP 128/76
[2020-12-03] MEDS: FAMOTIDINE 20 MG TABLET PO SCH ×4 (09:00→20:09)
[2020-12-03] MEDS: BusPIRone HCL 10 MG TABLET PO SCH ×2 (09:32→20:06)
[2020-12-03] MEDS: OLANZapine 10 MG TABLET PO SCH ×2 (09:32→20:07)
[2020-12-03] MEDS: LISINOPRIL 5 MG TABLET PO SCH ×2 (09:33→20:07)
[2020-12-03] MEDS: SERTRALINE HCL 50 MG TABLET PO SCH ×2 (09:33→20:06)
[2020-12-03] MEDS ORDERED: FAMO20 PO (12:31)
[2020-12-03] MEDS ORDERED: BUSP10TA23 PO (12:31)
[2020-12-03] MEDS ORDERED: OLAN10TA74 PO (12:32)
[2020-12-03] MEDS ORDERED: SERT-158 PO (12:32)
[2020-12-03] MEDS ORDERED: LISI-892 PO (12:32)
[2020-12-03] MEDS ORDERED: DOCU-270 PO (12:33)
[2020-12-03] MEDS ORDERED: BISA-151 PO (12:33)
[2020-12-03] MEDS ORDERED: MOM30 PO (12:34)
[2020-12-03 19:35] VITALS: BP 124/71
== END 2020-12-03 22:30 | DRG 885 ==
LOC: EMS 15:18 → 6S 17:55
PROVIDERS: ADMIT Internal Medicine; ATTEND Internal Medicine
DX: F25.1 Schizoaffective disorder, depressive type (principal); R45.851 Suicidal ideations; F17.200 Nicotine dependence, unspecified, uncomplicated; Z20.822 Contact with and (suspected) exposure to COVID-19; I11.9 Hypertensive heart disease without heart failure; Z91.51 Personal history of suicidal behavior
CPT/HCPCS: 80053; 85025; 99285; G0480

== ENCOUNTER 2020-12-16 13:45 | Inpatient (IN) | payer OTHER ==
[~2020-12-16] VITALS: Ht 172.7 cm; Wt 73.6 kg
[~2020-12-16 13:45] MED LIST changes: +BUSP10TA23 PO; +LISI-892 PO; +OLAN10TA74 PO; -RISP2TAB45 PO; -VENL-67 PO
[2020-12-16] MEDS ORDERED: ACETAMINOPHEN 325 MG TABLET PO PRN (16:30)
[2020-12-16] MEDS ORDERED: ONDANSETRON HCL 4 MG/2 ML VIAL IVP PRN (16:30)
[2020-12-16 16:33] LABS: BASOPHILS % (AUTO) 0.6 % (0.0-2.0); HEMATOCRIT 46.4 % (41-53); HEMOGLOBIN 15.7 g/dL (13.5-17.5); LYMPHOCYTES # (AUTO) 3.1 K/uL (1.0-4.8); LYMPHOCYTES % (AUTO) 36.2 % (22.0-44.0); MEAN CORPUSCULAR HEMOGLOBIN 30.7 pg (26.0-34.0); MEAN CORPUSCULAR HGB CONC 33.8 G/dL (31.0-37.0); MEAN CORPUSCULAR VOLUME 91 fL (80-100); MONOCYTES # (AUTO) 0.6 K/uL (0.1-1.0); MONOCYTES % (AUTO) 6.7 % (2.0-9.0); NEUTROPHILS # (AUTO) 4.5 K/uL (1.8-7.7); NEUTROPHILS % (AUTO) 53.5 % (40.0-70.0); PLATELET COUNT (AUTO) 258 K/uL (150-450); RED CELL DISTRIBUTION WIDTH 13.4 % (11.5-14.5)
[2020-12-16 16:35] LABS: COVID AG,FIA SOURCE NASOPHARYNGEAL
[2020-12-16 16:41] LABS: ANION GAP 8 mmol/L (8-16); CALCIUM, TOTAL 9.3 mg/dL (8.8-10.5); CARBON DIOXIDE 32 mmol/L (22-29); CHLORIDE 104 mmol/L (98-107); CREATININE 1.06 mg/dL (0.60-1.30); GLOMERULAR FILTR. RATE CALC > 60 mL/min (>60); GLUCOSE,RANDOM 87 mg/dL (70-110); POTASSIUM 4.7 mmol/L (3.5-5.1); SODIUM SERUM 144 mmol/L (136-145); UREA NITROGEN, BLOOD 14 mg/dL (7-18)
[2020-12-16 16:47] LABS: ALANINE AMINOTRANSFERASE 25 U/L (12-78); ALKALINE PHOSPHATASE 102 U/L (46-116); ASPARTATE AMINOTRANSFERASE 16 U/L (15-37); BILIRUBIN,TOTAL 0.5 mg/dL (0.1-1.0); TOTAL PROTEIN, SERUM 7.7 g/dL (6.4-8.2)
[2020-12-16 16:53] LABS: AMPHET/METH SCREEN,URINE NEGATIVE (NEGATIVE); BARBITURATE SCREEN, URINE NEGATIVE (NEGATIVE); BENZODIAZEPINES SCREEN,URINE NEGATIVE (NEGATIVE); CANNABINOID SCREEN,URINE NEGATIVE (NEGATIVE); COCAINE SCREEN,URINE NEGATIVE (NEGATIVE); METHADONE SCREEN, URINE NEGATIVE (NEGATIVE); OPIATE SCREEN,URINE NEGATIVE (NEGATIVE)
[2020-12-16 16:54] LABS: PHENCYCLIDINE SCREEN,URINE NEGATIVE (NEGATIVE)
[2020-12-16] MEDS ORDERED: ZOLPIDEM TARTRATE 5 MG TABLET PO PRN (17:00)
[2020-12-16] MEDS ORDERED: MAGNESIUM HYDROXIDE SUSPENSION 30 ML UDCUP PO PRN (17:00)
[2020-12-16 18:59] VITALS: BP 127/66
[2020-12-16 19:52] VITALS: BP 153/77
[2020-12-16] MEDS: ACETAMINOPHEN 325 MG TABLET PO PRN (20:04)
[2020-12-16] MEDS: OLANZapine 10 MG TABLET PO SCH (20:04)
[2020-12-17 04:50] VITALS: BP 113/58
[2020-12-17 07:43] VITALS: BP 103/60
[2020-12-17] MEDS: FAMOTIDINE 20 MG TABLET PO SCH (08:13)
[2020-12-17] MEDS: SERTRALINE HCL 50 MG TABLET PO SCH (08:14)
[2020-12-17 15:00] VITALS: BP 97/54
[2020-12-17 20:05] VITALS: BP 115/67
[2020-12-17] MEDS: OLANZapine 10 MG TABLET PO SCH (20:17)
[2020-12-18 05:17] VITALS: BP 107/59
[2020-12-18 07:22] VITALS: BP 110/61
[2020-12-18] MEDS: SERTRALINE HCL 50 MG TABLET PO SCH (08:28)
[2020-12-18] MEDS: FAMOTIDINE 20 MG TABLET PO SCH (08:28)
[2020-12-18] MEDS ORDERED: HALOPERIDOL 5 MG TABLET PO ONE (15:45)
[2020-12-18] MEDS ORDERED: LORazepam 2 MG TABLET PO ONE (15:45)
[2020-12-18 19:30] VITALS: BP 114/60
[2020-12-18] MEDS: OLANZapine 10 MG TABLET PO SCH (20:23)
[2020-12-19 03:35] VITALS: BP 113/69
[2020-12-19 08:04] VITALS: BP 130/86
[2020-12-19] MEDS: SERTRALINE HCL 50 MG TABLET PO SCH (08:29)
[2020-12-19] MEDS: FAMOTIDINE 20 MG TABLET PO SCH (08:29)
[2020-12-19 19:54] VITALS: BP 108/59
[2020-12-19] MEDS: OLANZapine 10 MG TABLET PO SCH (21:25)
[2020-12-20 04:45] VITALS: BP 104/59
[2020-12-20 08:15] VITALS: BP 113/56
[2020-12-20] MEDS: SERTRALINE HCL 50 MG TABLET PO SCH (08:19)
[2020-12-20] MEDS: FAMOTIDINE 20 MG TABLET PO SCH (08:20)
[2020-12-20] MEDS: ACETAMINOPHEN 325 MG TABLET PO PRN ×2 (12:19→18:55)
[2020-12-20 20:10] VITALS: BP 127/71
[2020-12-20] MEDS: OLANZapine 10 MG TABLET PO SCH (20:27)
[2020-12-21 08:05] VITALS: BP 110/69
[2020-12-21] MEDS: FAMOTIDINE 20 MG TABLET PO SCH (08:16)
[2020-12-21] MEDS: SERTRALINE HCL 50 MG TABLET PO SCH (08:16)
[2020-12-21] MEDS: ACETAMINOPHEN 325 MG TABLET PO PRN (10:21)
== END 2020-12-21 02:00 | DRG 885 ==
LOC: EMS 13:45 → 6S 16:47
PROVIDERS: ADMIT Internal Medicine; ATTEND Internal Medicine
DX: F25.1 Schizoaffective disorder, depressive type (principal); R45.851 Suicidal ideations; I10 Essential (primary) hypertension; Z20.822 Contact with and (suspected) exposure to COVID-19; F60.2 Antisocial personality disorder; Z87.891 Personal history of nicotine dependence; Z79.899 Other long term (current) drug therapy
CPT/HCPCS: 80053; 85025; 87081; 99285; G0480

== ENCOUNTER 2020-12-24 19:54 | Inpatient (IN) | payer OTHER ==
[~2020-12-24] VITALS: Ht 170.2 cm; Wt 75.7 kg
[~2020-12-24 19:54] MED LIST changes: -ACET650S24 PR; -BUSP10TA23 PO; -IBUP-2759 PO
[2020-12-24] MEDS: ACETAMINOPHEN 500 MG TABLET PO ONE ×2 (22:35→22:38)
[2020-12-24] MEDS ORDERED: ZOLPIDEM TARTRATE 5 MG TABLET PO PRN (22:45)
[2020-12-24] MEDS ORDERED: MAGNESIUM HYDROXIDE SUSPENSION 30 ML UDCUP PO PRN (22:45)
[2020-12-24 22:47] LABS: BASOPHILS % (AUTO) 0.6 % (0.0-2.0); EOSINOPHILS % (AUTO) 3.9 % (1.0-6.0); HEMATOCRIT 47.5 % (41-53); HEMOGLOBIN 15.6 g/dL (13.5-17.5); LYMPHOCYTES # (AUTO) 3.5 K/uL (1.0-4.8); LYMPHOCYTES % (AUTO) 37.5 % (22.0-44.0); MEAN CORPUSCULAR HEMOGLOBIN 29.9 pg (26.0-34.0); MEAN CORPUSCULAR HGB CONC 32.8 G/dL (31.0-37.0); MEAN CORPUSCULAR VOLUME 91 fL (80-100); MONOCYTES # (AUTO) 0.7 K/uL (0.1-1.0); NEUTROPHILS # (AUTO) 4.8 K/uL (1.8-7.7); PLATELET COUNT (AUTO) 218 K/uL (150-450); RED BLOOD CELL COUNT(AUTO) 5.21 MIL/uL (4.50-5.90); RED CELL DISTRIBUTION WIDTH 13.8 % (11.5-14.5)
[2020-12-24 22:47] LABS: COVID AG,FIA SOURCE NASOPHARYNGEAL
[2020-12-24 22:50] LABS: ANION GAP 9 mmol/L (8-16); CARBON DIOXIDE 30 mmol/L (22-29); CHLORIDE 104 mmol/L (98-107); CREATININE 1.04 mg/dL (0.60-1.30); GLUCOSE,RANDOM 87 mg/dL (70-110); POTASSIUM 4.1 mmol/L (3.5-5.1); SODIUM SERUM 143 mmol/L (136-145); UREA NITROGEN, BLOOD 17 mg/dL (7-18)
[2020-12-24 22:51] LABS: CALCIUM, TOTAL 9.1 mg/dL (8.8-10.5); GLOMERULAR FILTR. RATE CALC > 60 mL/min (>60)
[2020-12-24 22:57] LABS: ALANINE AMINOTRANSFERASE 29 U/L (12-78); ALBUMIN 4.1 g/dL (3.4-5.0); ALKALINE PHOSPHATASE 88 U/L (46-116); ASPARTATE AMINOTRANSFERASE 19 U/L (15-37); BILIRUBIN,TOTAL 0.4 mg/dL (0.1-1.0); TOTAL PROTEIN, SERUM 7.6 g/dL (6.4-8.2)
[2020-12-24 22:59] LABS: ACETAMINOPHEN < 2 mcg/mL (10-30)
[2020-12-24 23:03] LABS: SALICYLATE 0.9 mg/dL (2.8-20.0)
[2020-12-25] VITALS (7 sets, daily range): BP systolic 100–124; BP diastolic 53–76
[2020-12-25 02:19] LABS: AMPHET/METH SCREEN,URINE NEGATIVE (NEGATIVE); BARBITURATE SCREEN, URINE NEGATIVE (NEGATIVE); BENZODIAZEPINES SCREEN,URINE NEGATIVE (NEGATIVE); CANNABINOID SCREEN,URINE NEGATIVE (NEGATIVE); COCAINE SCREEN,URINE NEGATIVE (NEGATIVE); METHADONE SCREEN, URINE NEGATIVE (NEGATIVE); OPIATE SCREEN,URINE NEGATIVE (NEGATIVE)
[2020-12-25 02:20] LABS: PHENCYCLIDINE SCREEN,URINE NEGATIVE (NEGATIVE)
[2020-12-25] MEDS: FAMOTIDINE 20 MG TABLET PO SCH (08:30)
[2020-12-25] MEDS: SERTRALINE HCL 50 MG TABLET PO SCH (08:49)
[2020-12-25] MEDS ORDERED: INFLUENZA VIRUS VACCINE QVS 2021-22 (6MO+)/PF 60 MCG/0.5 ML SYRINGE IM. ONE (15:00)
[2020-12-25] MEDS ORDERED: OLANZapine 10 MG TABLET PO SCH (21:00)
[2020-12-26 07:32] VITALS: BP 127/76
[2020-12-26] MEDS: FAMOTIDINE 20 MG TABLET PO SCH (09:00)
[2020-12-26] MEDS: SERTRALINE HCL 50 MG TABLET PO SCH (09:11)
[2020-12-26 11:41] VITALS: BP 124/58
[2020-12-26] MEDS ORDERED: METO-558 PO (13:07)
[2020-12-26] MEDS: OLANZapine 10 MG TABLET PO SCH ×2 (15:01→20:10)
[2020-12-26] MEDS: ACETAMINOPHEN 325 MG TABLET PO PRN (15:01)
[2020-12-26 16:27] VITALS: BP 131/69
[2020-12-26 19:37] VITALS: BP 122/72
[2020-12-27 05:41] VITALS: BP 101/49
[2020-12-27 07:59] VITALS: BP 116/60
[2020-12-27] MEDS: OLANZapine 10 MG TABLET PO SCH ×2 (08:26→20:02)
[2020-12-27] MEDS: SERTRALINE HCL 100 MG TABLET PO SCH (08:26)
[2020-12-27] MEDS: FAMOTIDINE 20 MG TABLET PO SCH (09:00)
[2020-12-27 11:32] VITALS: BP 112/76
[2020-12-27 16:12] VITALS: BP 100/58
[2020-12-27 19:57] VITALS: BP 113/70
[2020-12-27] MEDS: ACETAMINOPHEN 325 MG TABLET PO PRN (20:02)
[2020-12-28 04:59] VITALS: BP 101/66
[2020-12-28 06:01] VITALS: BP 141/89
[2020-12-28] MEDS: ACETAMINOPHEN 325 MG TABLET PO PRN ×2 (06:05→15:00)
[2020-12-28 07:25] VITALS: BP 122/76
[2020-12-28] MEDS: OLANZapine 10 MG TABLET PO SCH ×2 (08:27→20:38)
[2020-12-28] MEDS: SERTRALINE HCL 100 MG TABLET PO SCH (08:27)
[2020-12-28] MEDS: FAMOTIDINE 20 MG TABLET PO SCH (08:29)
[2020-12-28 19:45] VITALS: BP 134/75
[2020-12-29 05:15] VITALS: BP 104/63
[2020-12-29] MEDS: OLANZapine 10 MG TABLET PO SCH ×2 (08:02→20:02)
[2020-12-29] MEDS: FAMOTIDINE 20 MG TABLET PO SCH ×2 (08:02→08:04)
[2020-12-29] MEDS: SERTRALINE HCL 100 MG TABLET PO SCH (08:03)
[2020-12-29 08:07] VITALS: BP 115/74
[2020-12-29 16:22] VITALS: BP 113/57
[2020-12-29] MEDS: ACETAMINOPHEN 325 MG TABLET PO PRN (17:10)
[2020-12-29 20:05] VITALS: BP 119/76
[2020-12-30 05:01] VITALS: BP 103/69
[2020-12-30] MEDS: SERTRALINE HCL 100 MG TABLET PO SCH (07:57)
[2020-12-30] MEDS: FAMOTIDINE 20 MG TABLET PO SCH (07:57)
[2020-12-30] MEDS: OLANZapine 10 MG TABLET PO SCH ×2 (07:57→20:05)
[2020-12-30 08:00] VITALS: BP 117/77
[2020-12-30] MEDS: ACETAMINOPHEN 325 MG TABLET PO PRN (14:30)
[2020-12-30 15:31] VITALS: BP 134/80
[2020-12-30 19:12] VITALS: BP_SYST 123; BP_SYST 133; BP_DIAS 74; BP_DIAS 81
[2020-12-31 04:44] VITALS: BP 142/89
[2020-12-31 07:29] VITALS: BP 133/84
[2020-12-31] MEDS: OLANZapine 10 MG TABLET PO SCH ×2 (07:47→20:42)
[2020-12-31] MEDS: FAMOTIDINE 20 MG TABLET PO SCH (07:48)
[2020-12-31] MEDS: SERTRALINE HCL 100 MG TABLET PO SCH (07:48)
[2020-12-31 15:27] VITALS: BP 128/82
[2020-12-31] MEDS ORDERED: WATER FOR IRRIGATION,STERILE 1000 ML SOLUTION BOTTLE ONE (17:47)
[2020-12-31] MEDS ORDERED: LIDOCAINE 1% 20 ML VIAL PERC ONE (18:00)
[2020-12-31 19:50] VITALS: BP 140/91
[2021-01-01 07:26] VITALS: BP 118/76
[2021-01-01] MEDS: FAMOTIDINE 20 MG TABLET PO SCH (08:12)
[2021-01-01] MEDS: OLANZapine 10 MG TABLET PO SCH (08:12)
[2021-01-01] MEDS: SERTRALINE HCL 100 MG TABLET PO SCH (08:12)
[2021-01-01] MEDS ORDERED: SERT-158 PO (11:55)
[2021-01-01] MEDS ORDERED: BACITRACIN 28 GM OINTMENT TP SCH (12:00)
[2021-01-01 15:40] VITALS: BP 124/75
== END 2021-01-01 17:55 | DRG 885 ==
LOC: EMS 19:56 → 5S 23:00 → 6S 12-27 18:50
PROVIDERS: ADMIT Internal Medicine; ATTEND Internal Medicine
PROC: 0HQ1XZZ Repair Face Skin, External Approach (ICD-10-PCS; principal; 2020-12-31)
DX: F25.1 Schizoaffective disorder, depressive type (principal); R45.851 Suicidal ideations; F17.210 Nicotine dependence, cigarettes, uncomplicated; R07.9 Chest pain, unspecified; F43.20 Adjustment disorder, unspecified; F60.2 Antisocial personality disorder; F41.1 Generalized anxiety disorder; Z20.822 Contact with and (suspected) exposure to COVID-19; I10 Essential (primary) hypertension; S01.112A Laceration without foreign body of left eyelid and periocular area, initial encounter; X58.XXXA Exposure to other specified factors, initial encounter; Y92.238 Other place in hospital as the place of occurrence of the external cause; Y93.89 Activity, other specified; Y99.8 Other external cause status; Z91.51 Personal history of suicidal behavior; Z90.49 Acquired absence of other specified parts of digestive tract
CPT/HCPCS: 80053; 84484; 85025; 93005; 99285; G0480; G0481; J3490

== ENCOUNTER 2021-03-20 12:18 | Inpatient (IN) | payer OTHER ==
[~2021-03-20] VITALS: Ht 172.7 cm; Wt 75.0 kg
[~2021-03-20 12:18] MED LIST changes: -LISI-892 PO
[2021-03-20] MEDS ORDERED: OLANZapine 5 MG TABLET PO ONE (16:45)
[2021-03-20] MEDS ORDERED: ESCI-8 PO (16:59)
[2021-03-20 17:02] LABS: COVID AG,FIA SOURCE NASOPHARYNGEAL
[2021-03-20] MEDS ORDERED: 0.9% SODIUM CHLORIDE 10 ML SYRINGE IVP PRN (17:45)
[2021-03-20] MEDS ORDERED: ONDANSETRON HCL 4 MG/2 ML VIAL IVP PRN ×2 (17:45)
[2021-03-20] MEDS ORDERED: ACETAMINOPHEN 325 MG TABLET PO PRN (17:45)
[2021-03-20 21:00] VITALS: BP 116/70
[2021-03-20 22:47] LABS: AMPHET/METH SCREEN,URINE NEGATIVE (NEGATIVE); BARBITURATE SCREEN, URINE NEGATIVE (NEGATIVE); BENZODIAZEPINES SCREEN,URINE NEGATIVE (NEGATIVE); CANNABINOID SCREEN,URINE NEGATIVE (NEGATIVE); COCAINE SCREEN,URINE NEGATIVE (NEGATIVE); METHADONE SCREEN, URINE NEGATIVE (NEGATIVE); OPIATE SCREEN,URINE NEGATIVE (NEGATIVE)
[2021-03-20 22:48] LABS: PHENCYCLIDINE SCREEN,URINE NEGATIVE (NEGATIVE)
[2021-03-21] MEDS ORDERED: HEPARIN SODIUM,PORCINE 5,000 UNITS/ML VIAL SQ SCH
[2021-03-21 04:20] VITALS: BP 106/58
[2021-03-21 07:14] VITALS: BP 132/61
[2021-03-21] MEDS: OLANZapine 10 MG TABLET PO SCH ×2 (12:26→20:01)
[2021-03-21] MEDS: ESCITALOPRAM OXALATE 10 MG TABLET PO SCH (12:26)
[2021-03-21 15:05] VITALS: BP 125/69
[2021-03-21] MEDS: ACETAMINOPHEN 325 MG TABLET PO PRN (20:05)
[2021-03-21 20:12] VITALS: BP 111/63
[2021-03-22 04:13] VITALS: BP 107/61
[2021-03-22 07:51] VITALS: BP 112/68
[2021-03-22] MEDS: OLANZapine 10 MG TABLET PO SCH ×2 (08:26→20:27)
[2021-03-22] MEDS: ESCITALOPRAM OXALATE 10 MG TABLET PO SCH (08:26)
[2021-03-22 15:50] VITALS: BP 147/80
[2021-03-22 19:50] VITALS: BP 113/70
[2021-03-23 04:00] VITALS: BP 105/61
[2021-03-23 07:49] VITALS: BP 139/77
[2021-03-23] MEDS: OLANZapine 10 MG TABLET PO SCH ×2 (09:24→20:14)
[2021-03-23] MEDS: ESCITALOPRAM OXALATE 10 MG TABLET PO SCH (09:24)
[2021-03-23] MEDS: ACETAMINOPHEN 325 MG TABLET PO PRN (17:13)
[2021-03-23 19:25] VITALS: BP 110/67
[2021-03-24 03:45] VITALS: BP 105/74
[2021-03-24 09:01] VITALS: BP 100/58
[2021-03-24] MEDS: OLANZapine 10 MG TABLET PO SCH (10:22)
[2021-03-24] MEDS: ACETAMINOPHEN 325 MG TABLET PO PRN (10:22)
[2021-03-24] MEDS: ESCITALOPRAM OXALATE 10 MG TABLET PO SCH (10:22)
[2021-03-24 14:17] VITALS: BP 124/66
[2021-03-24 14:52] VITALS: BP 136/68
== END 2021-03-24 15:15 | DRG 885 ==
LOC: EMS 12:28 → 6S 17:38
PROVIDERS: ADMIT Internal Medicine; ATTEND Internal Medicine
DX: F25.1 Schizoaffective disorder, depressive type (principal); R45.851 Suicidal ideations; I10 Essential (primary) hypertension; F60.2 Antisocial personality disorder; Z20.822 Contact with and (suspected) exposure to COVID-19; Z91.19 Patient's noncompliance with other medical treatment and regimen
CPT/HCPCS: 99285; J1644

== ENCOUNTER 2021-07-06 11:04 | Inpatient (IN) | payer OTHER ==
[~2021-07-06] VITALS: Ht 172.7 cm; Wt 68.2 kg
[~2021-07-06 11:04] MED LIST changes: +ESCI-8 PO
[2021-07-06 11:26] LABS: COVID AG,FIA SOURCE NASOPHARYNGEAL
[2021-07-06] MEDS ORDERED: LOPERAMIDE HCL 2 MG CAPSULE PO PRN (14:30)
[2021-07-06] MEDS ORDERED: LORazepam 2 MG/ML VIAL IVP PRN (14:30)
[2021-07-06] MEDS ORDERED: DICYCLOMINE HCL 10 MG CAPSULE PO PRN (14:30)
[2021-07-06] MEDS ORDERED: METOCLOPRAMIDE HCL 5 MG/ML 2 ML VIAL IVP PRN (14:30)
[2021-07-06 14:45] VITALS: BP 112/74
[2021-07-06 14:48] LABS: AMPHET/METH SCREEN,URINE NEGATIVE (NEGATIVE); BARBITURATE SCREEN, URINE NEGATIVE (NEGATIVE); BENZODIAZEPINES SCREEN,URINE NEGATIVE (NEGATIVE); CANNABINOID SCREEN,URINE NEGATIVE (NEGATIVE); COCAINE SCREEN,URINE NEGATIVE (NEGATIVE); METHADONE SCREEN, URINE NEGATIVE (NEGATIVE); OPIATE SCREEN,URINE NEGATIVE (NEGATIVE)
[2021-07-06 14:50] LABS: PHENCYCLIDINE SCREEN,URINE NEGATIVE (NEGATIVE)
[2021-07-06 19:40] VITALS: BP 114/57
[2021-07-06] MEDS: TEMAZEPAM 15 MG CAPSULE PO SCH (21:00)
[2021-07-06] MEDS: OLANZapine 10 MG TABLET PO SCH (21:00)
[2021-07-07 04:20] VITALS: BP 104/65
[2021-07-07 08:06] VITALS: BP 129/70
[2021-07-07] MEDS: OLANZapine 10 MG TABLET PO SCH (09:27)
[2021-07-07] MEDS: ESCITALOPRAM OXALATE 10 MG TABLET PO SCH (09:27)
[2021-07-07] MEDS: ACETAMINOPHEN/CODEINE 300-15 MG TABLET PO PRN (09:27)
[2021-07-07] MEDS: SERTRALINE HCL 50 MG TABLET PO SCH (09:28)
[2021-07-07 15:38] VITALS: BP 136/65
[2021-07-07 20:28] VITALS: BP 114/67
[2021-07-07] MEDS: TEMAZEPAM 15 MG CAPSULE PO SCH (20:28)
[2021-07-07] MEDS: OLANZapine 7.5 MG TABLET PO SCH (20:29)
[2021-07-08 06:02] VITALS: BP 108/71
[2021-07-08] MEDS: SERTRALINE HCL 50 MG TABLET PO SCH (08:16)
[2021-07-08] MEDS: ESCITALOPRAM OXALATE 10 MG TABLET PO SCH (08:17)
[2021-07-08] MEDS: OLANZapine 7.5 MG TABLET PO SCH ×2 (08:17→20:11)
[2021-07-08 08:22] VITALS: BP 109/68
[2021-07-08] MEDS: ACETAMINOPHEN/CODEINE 300-15 MG TABLET PO PRN (15:39)
[2021-07-08 16:29] VITALS: BP 117/71
[2021-07-08 20:00] VITALS: BP 131/62
[2021-07-08] MEDS: TEMAZEPAM 15 MG CAPSULE PO SCH (20:11)
[2021-07-09 04:00] VITALS: BP 122/80
[2021-07-09 04:27] VITALS: BP 117/65
[2021-07-09] MEDS: ACETAMINOPHEN/CODEINE 300-15 MG TABLET PO PRN (04:35)
[2021-07-09] MEDS ORDERED: ACETAMINOPHEN 325 MG TABLET PO PRN (05:00)
[2021-07-09 08:00] VITALS: BP 119/75
[2021-07-09] MEDS: ESCITALOPRAM OXALATE 10 MG TABLET PO SCH ×2 (09:00→09:23)
[2021-07-09] MEDS: SERTRALINE HCL 50 MG TABLET PO SCH (09:22)
[2021-07-09] MEDS: OLANZapine 7.5 MG TABLET PO SCH ×2 (09:22→21:00)
[2021-07-09 20:00] VITALS: BP 130/64
[2021-07-09] MEDS: TEMAZEPAM 15 MG CAPSULE PO SCH (21:00)
[2021-07-10 04:35] VITALS: BP 119/80
[2021-07-10 08:00] VITALS: BP 121/71
[2021-07-10] MEDS: ESCITALOPRAM OXALATE 10 MG TABLET PO SCH (09:55)
[2021-07-10] MEDS: SERTRALINE HCL 50 MG TABLET PO SCH (09:55)
[2021-07-10] MEDS: OLANZapine 7.5 MG TABLET PO SCH ×2 (09:55→21:00)
[2021-07-10 16:00] VITALS: BP 108/58
[2021-07-10 20:18] VITALS: BP 103/56
[2021-07-10] MEDS: TEMAZEPAM 15 MG CAPSULE PO SCH (21:00)
[2021-07-11 03:56] VITALS: BP 111/64
[2021-07-11 08:14] VITALS: BP 127/76
[2021-07-11] MEDS: SERTRALINE HCL 50 MG TABLET PO SCH (08:42)
[2021-07-11] MEDS: OLANZapine 7.5 MG TABLET PO SCH (08:42)
[2021-07-11] MEDS: ESCITALOPRAM OXALATE 10 MG TABLET PO SCH (08:42)
== END 2021-07-11 13:25 | DRG 885 ==
LOC: EMS 11:04 → 6S 13:48
PROVIDERS: ADMIT Internal Medicine; ATTEND Internal Medicine
DX: F25.1 Schizoaffective disorder, depressive type (principal); F41.9 Anxiety disorder, unspecified; I10 Essential (primary) hypertension; Z20.822 Contact with and (suspected) exposure to COVID-19; F60.2 Antisocial personality disorder; F43.20 Adjustment disorder, unspecified; R01.1 Cardiac murmur, unspecified; Z90.49 Acquired absence of other specified parts of digestive tract
CPT/HCPCS: 93005; 99285